=== PATIENT | female | born 1985 | race Caucasian/White ===

== ENCOUNTER 2018-12-24 07:52 | Inpatient (IN) ==
[2018-12-24] MEDS ORDERED: OXYTOCIN 30 UNITS/500 ML BAG IV PRN ×3 (08:41→20:12)
[2018-12-24] MEDS ORDERED: PENICILLIN G POTASSIUM 6 MU in DEXTROSE 5% 250 ML IV STA (08:46)
--- NOTE | 2018-12-24 08:48 | History & Physical Report ---
Date of Service December 24, 2018 Assessment & Plan (1) Post-dates : 33 yo at 41 wks, scheduled IOL VSS Afebrile FHR reassuring Early labor with irregular ctxs, favorable cervix GBS+ Plan to admit, monitor, PCN, Low dose pitocin to augment All questions were answered (2) GBS (group B Streptococcus carrier), +RV culture, currently : History of Present Illness Chief Complaint: Induction Primary Care Provider: NO PCP Patient is a 33 yo at 41 wks , scheduled IOL No complaints No ctxs/ LOF/VB +FM's Her has been uncomplicated except 1) GBS + 2) RH negative, received Rhogam 3) Prominent renal pelvises, stable Allergies Allergy/AdvReac Type Severity Reaction Status Date / Time No Known Drug Allergies Allergy Unknown Verified 12/24/18 08:09 Home Medications Home Medications Medication Instructions Recorded Confirmed Type PNV cmb#95-ferrous fumarate-FA 1 tab PO DAILY 12/24/18 12/24/18 History [] Patient History Medical History H/O wisdom tooth extraction as a teenager No known health problems Family History Grandmother (Paternal) Type II diabetes mellitus Social History Preferred Language: [place] 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 Beliefs That Will Affect Care: None marital status: Current Living Situation: Spouse Other Information That Helps Us Care for You: No Feels Safe at Home: Yes Safety Concerns: Feels Safe At This Time Smoking Status: Never smoker Do You Dip or Chew Tobacco: No ; Second Hand Exposure: No ; Hx Alcohol Use: No Hx 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
[2018-12-24] MEDS: LACTATED RINGER'S 1,000 ML IV PRN ×3 (09:17→16:08)
[2018-12-24 09:19] LABS: Hematocrit (blood only) 41.1 % (37-47); Hemoglobin 14.5 g/dL (12.0-16.0); Mean Corpuscular Hemoglobin 32.1 pg (25-34); Mean Corpuscular Volume 90.9 fL (80-100); Mean Platelet Volume 11.7 fL (7.4-10.4); Platelet Count 211 K/uL (130-400); RDW Coefficient of Variation 13.1 % (11.5-14.5); RDW Standard Deviation 43.2 fL (36.4-46.3); Red Blood Count 4.52 M/uL (4.2-5.4); White Blood Count 11.55 K/uL (4.8-10.8)
[2018-12-24 09:24] LABS: Mean Corpuscular Hgb Conc 35.3 g/dL (32-36)
[2018-12-24] MEDS ORDERED: BUTORPHANOL TARTRATE 1 MG/ML VIAL IV PRN (09:41)
[2018-12-24] MEDS: PENICILLIN G POTASSIUM 3 MU in DEXTROSE 5% 100 ML IV PRN ×2 (12:51→17:03)
[2018-12-24] MEDS ORDERED: ePHEDrine sulfate 50 MG/ML AMP ONE (13:04)
[2018-12-24] MEDS ORDERED: BUPIVACAINE 0.25% 30 ML VIAL ONE (13:04)
[2018-12-24] MEDS ORDERED: fentaNYL citrate 100 MCG/2 ML VIAL ONE (13:05)
[2018-12-24] MEDS ORDERED: fentaNYL 2MCG/ML ROPIV 1.25MG/ML 100 ML BAG EPI ONE (13:05)
--- NOTE | 2018-12-24 13:11 | Anesthesiology Consultation ---
Date of Service December 24, 2018 Assessment & Plan Chart Review Chart Review: Acceptable Risk for Surgery, Patient NOT seen in Pre Admission Testing and Acceptable Risk for Labor Epidural Consults Requested none ASA ASA2 Proposed Anesthesia Anesthesia Type: General and Labor Epidural Risk / Benefits Reviewed With: PT / POA / Parent / Guardian, Accepts Plan and Informed Consent Obtained History Height/Weight Height: 5 ft 5 in Weight: 90.718 kg Allergies Allergy/AdvReac Type Severity Reaction Status Date / Time No Known Drug Allergies Allergy Unknown Verified 12/24/18 08:09 Medications Home Medications Medication Instructions Recorded Confirmed Last Taken PNV cmb#95-ferrous fumarate-FA 1 tab PO DAILY 12/24/18 12/24/18 12/23/18 18:00 [] Active Medications Generic Name Dose Route Start Last Admin Trade Name Freq PRN Reason Stop Dose Admin Oxytocin 30 units in 500 mls @ 8 mls/hr 12/24/18 08:41 12/24/18 11:27 Pitocin IV 12/26/18 08:40 0.48 units/hr .Q24H PRN 8 mls/hr Labor Induction/Augmentation Titration Protocol 0.48 UNITS/HR Lactated Ringer's 1,000 mls @ 150 mls/hr 12/24/18 08:41 12/24/18 13:03 Lr IV 12/26/18 08:40 999 mls/hr .Q6H40M PRN Infusion L&D Protocol Protocol Penicillin G Potassium 3 mu/ 106 mls @ 100 mls/hr 12/24/18 08:41 12/24/18 12:51 Dextrose IV 01/03/19 08:40 100 mls/hr Q4H PRN Administration Give until delivery NPO Date Last Intake of Fluids: 12/24/18 Time Last Intake of Fluids: 12:30 Date Last Intake of Solids: 12/24/18 Time Last Intake of Solids: 07:00 Past Medical History Medical History GERD (gastroesophageal reflux disease) H/O wisdom tooth extraction as a teenager No known health problems Obese Exercise / Class Metabolic Activity II 4-5 Yardwork/Stairs/Walk up hill Past Family History Family History Grandmother (Paternal) Type II diabetes mellitus Past Anesthesia History No Hx of Anesthesia Complications and No Family Hx of Anesthesia Complications History of PONV No Hx of PONV and No Hx of Motion Sickness Social History Smoking Status: Never smoker Do You Dip or Chew Tobacco: No Hx Alcohol Use: No Hx Substance Use: No substance use type: does not use Physical Exam Vital Signs Last Vital Signs Temp 36.9 C 12/24/18 10:57 Pulse 85 12/24/18 12:41 Resp 18 12/24/18 10:57 BP 131/82 12/24/18 12:41 Constitutional + obese ENMT Mouth: + small oral opening; no dentition abnormality Thyromental Distance: < 3.5 Finger Breadths Mallampati Class: II Neck normal visual inspection and trachea midline; neck extension not limited Respiratory normal respiratory effort Auscultation: lungs clear to auscultation bilaterally Cardiovascular Rate/Rhythm: regular rate and regular rhythm Heart Sounds: no murmur Musculoskeletal Spine: lumbar spine normal to inspection; normal cervical ROM Neurologic moves all extremities Motor/Sensory: no sensory deficit Psychiatric Orientation: alert and oriented x 3 Testing Laboratory Results 12/24/18 08:54
[2018-12-24] MEDS ORDERED: PROMETHAZINE HCL 25 MG in SODIUM CHLORIDE 0.9% 50 ML IV PRN (13:36)
[2018-12-24] MEDS ORDERED: NALBUPHINE HCL INJ 10 MG/ML AMP IV PRN (13:36)
[2018-12-24] MEDS ORDERED: NALOXONE HCL 1 MG in SODIUM CHLORIDE 0.9% 1000ML 1,000 ML IV PRN (13:36)
[2018-12-24] MEDS ORDERED: ePHEDrine sulfate 50 MG/ML AMP IV PRN (13:36)
[2018-12-24] MEDS ORDERED: DiphenhydrAMINE HCL 50 MG/ML VIAL IV PRN (13:36)
[2018-12-24] MEDS ORDERED: NALOXONE HCL 0.4 MG/1 ML VIAL/CARP IV PRN (13:36)
[2018-12-24] MEDS ORDERED: fentaNYL 2MCG/ML ROPIV 1.25MG/ML 100 ML BAG EPI PRN (13:36)
[2018-12-24] MEDS ORDERED: ONDANSETRON INJ 2 MG/ML 2 ML VIAL IV PRN (13:36)
--- NOTE | 2018-12-24 13:49 | Obstetrical Progress Note ---
Date of Service December 24, 2018 Subjective Patient is reevaluated She received epidural for pain, comfortable now FHR with moderate variability VE; 5/ 60%/ -2, tight bulging bag, AROM, clear fluid [place] ctxs q2-4 min, pitocin is at 10 miu/min Continue to monitor Results & Data Vital Signs (Past 12 Hours) Vital Signs Temp Pulse Resp BP Pulse Ox 12/24/18 13:44 113 H 116/72 12/24/18 13:42 134 H 119/67 12/24/18 13:41 128 H 99 12/24/18 13:40 74 124/71 12/24/18 13:38 75 85/48 L 12/24/18 13:36 102 H 122/71 98 12/24/18 13:34 101 H 119/62 12/24/18 13:32 103 H 135/62 12/24/18 13:31 109 H 98 12/24/18 13:26 87 99 12/24/18 13:21 101 H 99 12/24/18 13:16 94 H 100 12/24/18 13:11 92 H 99 12/24/18 12:41 85 131/82 12/24/18 11:40 94 H 129/88 12/24/18 10:57 36.9 C 18 12/24/18 10:40 76 118/64 12/24/18 10:10 91 H 138/91 12/24/18 08:04 120 H 133/85 12/24/18 08:01 36.7 C 18
--- NOTE | 2018-12-24 15:48 | Obstetrical Progress Note ---
Date of Service December 24, 2018 Subjective Patient is reevaluated FHR was having mild early / late decels wth ctxs Her nurse was checking her cervix and called 8-9 cm/+1 station, FHR had accel and increased variability after VE Patient does not feel any pain nor pressure Continue to monitor Anticipate Results & Data Vital Signs (Past 12 Hours) Vital Signs Temp Pulse Resp BP Pulse Ox 12/24/18 15:46 92 H 100 12/24/18 15:42 78 119/81 12/24/18 15:41 85 99 12/24/18 15:36 69 99 12/24/18 15:31 69 98 12/24/18 15:30 18 12/24/18 15:28 85 120/76 12/24/18 15:26 75 100 12/24/18 15:21 72 100 12/24/18 15:16 72 98 12/24/18 15:13 77 125/69 12/24/18 15:11 82 99 12/24/18 15:06 92 H 99 12/24/18 15:01 83 99 12/24/18 15:00 36.8 C 18 12/24/18 14:56 70 98 12/24/18 14:55 73 118/69 12/24/18 14:51 79 99 12/24/18 14:49 73 115/68 12/24/18 14:46 75 97 12/24/18 14:44 87 117/76 12/24/18 14:41 76 99 12/24/18 14:40 74 117/73 12/24/18 14:36 90 98 12/24/18 14:34 79 114/71 12/24/18 14:31 88 95 12/24/18 14:30 73 18 117/69 12/24/18 14:26 80 98 12/24/18 14:24 74 113/72 12/24/18 14:23 86 94 12/24/18 14:21 73 98 12/24/18 14:19 76 114/70 12/24/18 14:16 77 99 12/24/18 14:15 88 118/74 12/24/18 14:11 84 99 12/24/18 14:10 89 113/75 12/24/18 14:06 94 H 98 12/24/18 14:04 83 119/76 12/24/18 14:02 98 H 121/72 12/24/18 14:01 95 H 98 12/24/18 14:00 36.7 C 86 18 125/73 12/24/18 13:58 90 127/80 12/24/18 13:56 104 H 124/77 98 12/24/18 13:54 96 H 117/77 12/24/18 13:52 106 H 119/79 12/24/18 13:51 114 H 100 12/24/18 13:50 110 H 121/80 12/24/18 13:48 96 H 118/79 12/24/18 13:46 121 H 115/83 100 12/24/18 13:44 113 H 116/72 12/24/18 13:42 134 H 119/67 12/24/18 13:41 128 H 99 12/24/18 13:40 74 124/71 12/24/18 13:38 75 85/48 L 12/24/18 13:36 102 H 122/71 98 12/24/18 13:34 101 H 119/62 12/24/18 13:32 103 H 135/62 12/24/18 13:31 109 H 98 12/24/18 13:26 87 99 12/24/18 13:21 101 H 99 12/24/18 13:16 94 H 100 12/24/18 13:11 92 H 99 12/24/18 12:41 85 131/82 12/24/18 11:40 94 H 129/88 12/24/18 10:57 36.9 C 18 12/24/18 10:40 76 118/64 12/24/18 10:10 91 H 138/91 12/24/18 08:04 120 H 133/85 12/24/18 08:01 36.7 C 18
--- NOTE | 2018-12-24 17:20 | Obstetrical Progress Note ---
Date of Service December 24, 2018 Subjective Patient is seen and examined She has been pushing for 1/2 hours VE; 10/ 100%/+2, anterior fontanelle at 5 o'clock position, OA FHR reassuring Continue to monitor and pushing Results & Data Vital Signs (Past 12 Hours) Vital Signs Temp Pulse Resp BP Pulse Ox 12/24/18 17:16 103 H 98 12/24/18 17:12 103 H 133/76 12/24/18 17:11 109 H 99 12/24/18 17:06 36.9 C 113 H 100 12/24/18 17:01 85 100 12/24/18 17:00 22 12/24/18 16:56 93 H 99 12/24/18 16:51 96 H 98 12/24/18 16:46 83 99 12/24/18 16:41 98 H 100 12/24/18 16:36 97 H 100 12/24/18 16:31 97 H 100 12/24/18 16:30 18 12/24/18 16:28 93 H 123/82 12/24/18 16:26 96 H 99 12/24/18 16:21 93 H 100 12/24/18 16:16 94 H 100 12/24/18 16:13 100 H 135/82 12/24/18 16:11 100 H 100 12/24/18 16:06 86 100 12/24/18 16:01 97 H 99 12/24/18 16:00 18 12/24/18 15:57 86 114/69 12/24/18 15:56 86 100 12/24/18 15:51 90 99 12/24/18 15:46 92 H 100 12/24/18 15:42 78 119/81 12/24/18 15:41 85 99 12/24/18 15:36 69 99 12/24/18 15:31 69 98 12/24/18 15:30 18 12/24/18 15:28 85 120/76 12/24/18 15:26 75 100 12/24/18 15:21 72 100 12/24/18 15:16 72 98 12/24/18 15:13 77 125/69 12/24/18 15:11 82 99 12/24/18 15:06 92 H 99 12/24/18 15:01 83 99 12/24/18 15:00 36.8 C 18 09/06/19 14:56 70 98 12/24/18 14:55 73 118/69 12/24/18 14:51 79 99 12/24/18 14:49 73 115/68 12/24/18 14:46 75 97 12/24/18 14:44 87 117/76 12/24/18 14:41 76 99 12/24/18 14:40 74 117/73 12/24/18 14:36 90 98 12/24/18 14:34 79 114/71 12/24/18 14:31 88 95 12/24/18 14:30 73 18 117/69 12/24/18 14:26 80 98 12/24/18 14:24 74 113/72 12/24/18 14:23 86 94 12/24/18 14:21 73 98 12/24/18 14:19 76 114/70 12/24/18 14:16 77 99 12/24/18 14:15 88 118/74 12/24/18 14:11 84 99 12/24/18 14:10 89 113/75 12/24/18 14:06 94 H 98 12/24/18 14:04 83 119/76 12/24/18 14:02 98 H 121/72 12/24/18 14:01 95 H 98 12/24/18 14:00 36.7 C 86 18 125/73 12/24/18 13:58 90 127/80 12/24/18 13:56 104 H 124/77 98 12/24/18 13:54 96 H 117/77 12/24/18 13:52 106 H 119/79 12/24/18 13:51 114 H 100 12/24/18 13:50 110 H 121/80 12/24/18 13:48 96 H 118/79 12/24/18 13:46 121 H 115/83 100 12/24/18 13:44 113 H 116/72 12/24/18 13:42 134 H 119/67 12/24/18 13:41 128 H 99 12/24/18 13:40 74 124/71 12/24/18 13:38 75 85/48 L 12/24/18 13:36 102 H 122/71 98 12/24/18 13:34 101 H 119/62 12/24/18 13:32 103 H 135/62 12/24/18 13:31 109 H 98 12/24/18 13:26 87 99 12/24/18 13:21 101 H 99 12/24/18 13:16 94 H 100 12/24/18 13:11 92 H 99 12/24/18 12:41 85 131/82 12/24/18 11:40 94 H 129/88 12/24/18 10:57 36.9 C 18 12/24/18 10:40 76 118/64 12/24/18 10:10 91 H 138/91 12/24/18 08:04 120 H 133/85 12/24/18 08:01 36.7 C 18
[2018-12-24] MEDS ORDERED: CEFAZOLIN 250 MG/ML 1 GM VIAL IV STA (18:35)
[2018-12-24] MEDS ORDERED: CEFAZOLIN 2000MG 2,000 MG/15 ML SYR IV STA (18:45)
--- NOTE | 2018-12-24 19:00 | Obstetrical Progress Note ---
Date of Service December 24, 2018 Subjective Patient had temp of 38.3 FHR was tachycardic at 170's Head was at +3 station Ordered Cefazolin Now head is on perineum FHR 150-160's with good variability Continue to monitor Anticipate Results & Data Vital Signs (Past 12 Hours) Vital Signs Temp Pulse Resp BP Pulse Ox 12/24/18 18:56 157 H 99 12/24/18 18:51 117 H 98 12/24/18 18:46 134 H 98 12/24/18 18:41 106 H 99 12/24/18 18:36 100 H 97 12/24/18 18:31 139 H 98 12/24/18 18:30 38.3 C H 18 12/24/18 18:29 83 138/77 12/24/18 18:26 118 H 98 12/24/18 18:22 96 H 87 L 12/24/18 18:21 96 H 94 12/24/18 18:17 96 H 87 L 12/24/18 18:16 95 H 90 12/24/18 18:13 95 H 135/72 12/24/18 18:11 106 H 99 12/24/18 18:10 94 H 85 L 12/24/18 18:06 97 H 98 12/24/18 18:04 115 H 87 L 12/24/18 18:01 109 H 99 12/24/18 18:00 18 12/24/18 17:58 100 H 140/69 12/24/18 17:56 106 H 99 12/24/18 17:51 117 H 96 12/24/18 17:49 94 H 86 L 12/24/18 17:46 96 H 94 12/24/18 17:44 92 H 87 L 12/24/18 17:43 89 133/63 12/24/18 17:41 92 H 99 12/24/18 17:38 91 H 79 L 12/24/18 17:36 97 H 96 12/24/18 17:33 92 H 89 L 12/24/18 17:31 91 H 99 12/24/18 17:28 96 H 135/90 12/24/18 17:26 90 98 12/24/18 17:21 97 H 99 12/24/18 17:16 103 H 98 12/24/18 17:12 103 H 133/76 12/24/18 17:11 109 H 99 12/24/18 17:06 36.9 C 113 H 100 12/24/18 17:01 85 100 12/24/18 17:00 22 12/24/18 16:56 93 H 99 12/24/18 16:51 96 H 98 12/24/18 16:46 83 99 12/24/18 16:41 98 H 100 12/24/18 16:36 97 H 100 12/24/18 16:31 97 H 100 12/24/18 16:30 18 12/24/18 16:28 93 H 123/82 12/24/18 16:26 96 H 99 12/24/18 16:21 93 H 100 12/24/18 16:16 94 H 100 12/24/18 16:13 100 H 135/82 12/24/18 16:11 100 H 100 12/24/18 16:06 86 100 12/24/18 16:01 97 H 99 12/24/18 16:00 18 12/24/18 15:57 86 114/69 12/24/18 15:56 86 100 12/24/18 15:51 90 99 12/24/18 15:46 92 H 100 12/24/18 15:42 78 119/81 12/24/18 15:41 85 99 12/24/18 15:36 69 99 12/24/18 15:31 69 98 12/24/18 15:30 18 12/24/18 15:28 85 120/76 12/24/18 15:26 75 100 12/24/18 15:21 72 100 12/24/18 15:16 72 98 12/24/18 15:13 77 125/69 12/24/18 15:11 82 99 12/24/18 15:06 92 H 99 12/24/18 15:01 83 99 12/24/18 15:00 36.8 C 18 12/24/18 14:56 70 98 12/24/18 14:55 73 118/69 12/24/18 14:51 79 99 12/24/18 14:49 73 115/68 12/24/18 14:46 75 97 12/24/18 14:44 87 117/76 12/24/18 14:41 76 99 12/24/18 14:40 74 117/73 12/24/18 14:36 90 98 12/24/18 14:34 79 114/71 12/24/18 14:31 88 95 12/24/18 14:30 73 18 117/69 12/24/18 14:26 80 98 12/24/18 14:24 74 113/72 12/24/18 14:23 86 94 12/24/18 14:21 73 98 12/24/18 14:19 76 114/70 12/24/18 14:16 77 99 12/24/18 14:15 88 118/74 12/24/18 14:11 84 99 12/24/18 14:10 89 113/75 12/24/18 14:06 94 H 98 12/24/18 14:04 83 119/76 12/24/18 14:02 98 H 121/72 12/24/18 14:01 95 H 98 12/24/18 14:00 36.7 C 86 18 125/73 12/24/18 13:58 90 127/80 12/24/18 13:56 104 H 124/77 98 12/24/18 13:54 96 H 117/77 12/24/18 13:52 106 H 119/79 12/24/18 13:51 114 H 100 12/24/18 13:50 110 H 121/80 12/24/18 13:48 96 H 118/79 12/24/18 13:46 121 H 115/83 100 12/24/18 13:44 113 H 116/72 12/24/18 13:42 134 H 119/67 12/24/18 13:41 128 H 99 12/24/18 13:40 74 124/71 12/24/18 13:38 75 85/48 L 12/24/18 13:36 102 H 122/71 98 12/24/18 13:34 101 H 119/62 12/24/18 13:32 103 H 135/62 12/24/18 13:31 109 H 98 12/24/18 13:26 87 99 12/24/18 13:21 101 H 99 12/24/18 13:16 94 H 100 12/24/18 13:11 92 H 99 12/24/18 12:41 85 131/82 12/24/18 11:40 94 H 129/88 12/24/18 10:57 36.9 C 18 12/24/18 10:40 76 118/64 12/24/18 10:10 91 H 138/91 12/24/18 08:04 120 H 133/85 12/24/18 08:01 36.7 C 18
[2018-12-24] MEDS ORDERED: SUPERCREAM 0.870% 15 GM JAR EXT PRN (20:12)
[2018-12-24] MEDS ORDERED: OXYCODONE/ACETAMINOPHEN 5mg/325mg TAB PO PRN (20:12)
[2018-12-24] MEDS ORDERED: HYDROCORTISONE ACETATE 25 MG SUPP PR PRN (20:12)
[2018-12-24] MEDS ORDERED: MEASLES, MUMPS & RUBELLA VIRUS VIAL SQ ONE (20:12)
[2018-12-24] MEDS ORDERED: ACETAMINOPHEN 325 MG TAB PO PRN (20:12)
[2018-12-24] MEDS ORDERED: BENZOCAINE 20% AER SPR 82.5 GM CAN EXT PRN (20:12)
[2018-12-24] MEDS ORDERED: DIPHTHERIA/TETANUS/PERTUSSIS 0.5 ML SYR/VIAL IM ONE (20:12)
[2018-12-24] MEDS ORDERED: LACTATED RINGER'S 1,000 ML IV SCH (20:15)
[2018-12-24] MEDS: DOCUSATE SODIUM 100 MG CAP PO SCH (21:22)
[2018-12-24] MEDS: IBUPROFEN 600 MG TAB PO PRN (22:04)
--- NOTE | 2018-12-24 22:58 | Anesthesia Procedure Note ---
Date of Service December 24, 2018 Anesthesia Post Epidural Note Vital Signs Vital Signs: Temp Pulse Resp BP Pulse Ox 36.8 C 129 H 20 110/64 99 12/24/18 22:00 12/24/18 22:00 12/24/18 22:00 12/24/18 22:00 12/24/18 19:41 Notes Mental Status: alert / awake / arousable Nausea / Vomiting: adequately controlled Pain: adequately controlled Airway Patency, RR, SpO2: stable & adequate BP & HR: stable & adequate Hydration State: stable & adequate Neuraxial Anesthesia: was administered and sensory block is resolving Anesthetic Complications: no major complications apparent Epidural: Removed without complications and With tip intact
[2018-12-25] MEDS ORDERED: CEFAZOLIN 2000MG 2,000 MG/15 ML SYR IV SCH (02:00)
[2018-12-25] MEDS: IBUPROFEN 600 MG TAB PO PRN ×4 (02:02→21:10)
--- NOTE | 2018-12-25 05:48 | Delivery Summary ---
DATE OF OPERATION: 12/24/2018 TIME OF DELIVERY OF BABY: 19:29 p.m. TIME OF DELIVERY OF PLACENTA: 19:34 p.m. DETAILS OF DELIVERY: The patient was found to be fully dilated and desired to push. She pushed for about 2 hours and 50 minutes and delivered the head without difficulty. Shoulders were delivered with minimal traction. Baby was handed off to the mother where mouth and nose were suctioned and terminal meconium was noted. The baby was vigorously crying and moving. Cord was clamped at 1 minute delay and cut. It was 3 vessels cord. Cord blood was collected per patient request for donation and then vagina and perineum were checked for lacerations. There was a third-degree perineal laceration, which was confirmed with rectal exam and the sphincter muscles were found and held with Allis clamps and brought to the midline. Gloves were changed. At that point, placenta was found to be in the vagina, delivered spontaneously as intact and complete. Uterus was explored, found to be empty. Lower segment was cleared of all clots and debris. Fundus was firm. Attention was turned to the repair. These sphincter muscles were repaired with U-suture with 2-0 Vicryl first by end-to-end fashion and then multiple [id number] sutures were placed at the perineal body muscles around the sphincter muscle to support the sphincter. Rectal exam was repeated. Excellent sphincter tone and integrity was noted. No sutures were felt in the rectum. Gloves were changed. Bulbocavernous muscles were reapproximated and supported the sphincter and perineal area. The vaginal mucosa was repaired with 2-0 Vicryl in a running locked fashion and there was another vaginal extension on the left side which was smaller. It was also repaired with 2-0 Vicryl in a running fashion, and in the midline, the bulbocavernous muscles, perineal body muscles were also repaired. Skin was closed in a subcuticular fashion. Excellent hemostasis was achieved. There was a small first-degree laceration on the anterior lower vaginal wall, which was repaired with 3-0 Vicryl on SH needle with [id number] stitch x2. Excellent hemostasis was achieved. Rest of the vagina and perineum were intact. Fundus was firm. EBL was 200 ml. Mom and baby tolerated the procedure well. Sponge, lap, needle count was correct x2. Baby was a viable male infant, Apgars 8/9. No complications happened. I was present during whole procedure and mom received 2 grams of cefazolin during repair. She had a temperature of 38.3 during labor. She will be treated for 24 hours empirically for possible intra-amniotic infection and peds are notified. I attest to the content of the Intraoperative Record and any orders documented therein. Any exceptions are noted below. KANE
[2018-12-25 06:53] LABS: Hematocrit (blood only) 32.5 % (37-47); Hemoglobin 11.2 g/dL (12.0-16.0); Mean Corpuscular Hemoglobin 31.5 pg (25-34); Mean Corpuscular Hgb Conc 34.5 g/dL (32-36); Mean Corpuscular Volume 91.3 fL (80-100); Mean Platelet Volume 11.2 fL (7.4-10.4); Platelet Count 181 K/uL (130-400); RDW Standard Deviation 42.9 fL (36.4-46.3); Red Blood Count 3.56 M/uL (4.2-5.4); White Blood Count 15.69 K/uL (4.8-10.8)
[2018-12-25] MEDS: PRENATAL VITAMIN 1 TAB PO SCH (07:46)
[2018-12-25] MEDS: DOCUSATE SODIUM 100 MG CAP PO SCH ×2 (07:46→21:10)
[2018-12-25] MEDS: FERROUS SULFATE 325 MG TAB PO SCH (07:46)
--- NOTE | 2018-12-25 09:52 | Obstetrical Progress Note ---
Date of Service December 25, 2018 Assessment & Plan (1) normal course: Day #1 doing well continue care anticipate disch tomorrow Subjective Ambulation: ambulating normally Voiding: no voiding problems Passing Gas:: Yes Diet Tolerance:: regular diet Lochia:: Small Feeding Type:: breast feeding Review of Systems All systems reviewed & are unremarkable except as noted in HPI & below Physical Exam Constitutional WD/WN, vitals as above well developed and well nourished Eyes PERRL, conjunctivae normal, anicteric sclerae Neck trachea midline, no thyromegaly Respiratory normal respiratory effort, lungs clear to auscultation Auscultation: no crackles, no rales and no wheezes Cardiovascular RRR, no murmur, no edema Gastrointestinal (Abdomen) normal bowel sounds, soft, nontender, no hepatosplenomegaly Uterus is below umbilicus Musculoskeletal no cyanosis or clubbing, extremities motor strength 5/5 Skin no rashes, warm and dry Neurologic patellar DTR's 2+ bilat, sensation intact Psychiatric A+Ox3, euthymic affect Genitourinary normal external appearance Results & Data Vital Signs (Past 12 Hours) Vital Signs Temp Pulse Pulse Resp BP BP Pulse Ox 12/25/18 09:46 36.7 C 98 H 18 107/71 98 12/25/18 09:31 36.7 C 92 H 18 101/63 98 12/25/18 04:20 36.4 C L 85 16 116/77 98 12/24/18 22:50 36.9 C 96 H 20 108/69 100 12/24/18 22:00 36.8 C 129 H 20 110/64 12/24/18 21:57 129 H 110/64
[2018-12-25] MEDS ORDERED: BISACODYL 5 MG TABEC PO SCH (20:00)
[2018-12-26 06:27] LABS: Hematocrit (blood only) 32.4 % (37-47)
[2018-12-26] MEDS: IBUPROFEN 600 MG TAB PO PRN (06:34)
[2018-12-26] MEDS: PRENATAL VITAMIN 1 TAB PO SCH (08:56)
[2018-12-26] MEDS: DOCUSATE SODIUM 100 MG CAP PO SCH (08:56)
[2018-12-26] MEDS: FERROUS SULFATE 325 MG TAB PO SCH (08:56)
[2018-12-26] MEDS ORDERED: BISACODYL 10 MG SUPP PR PRN (09:00)
--- NOTE | 2018-12-26 10:31 | Obstetrical Progress Note ---
Date of Service December 26, 2018 Assessment & Plan (1) normal course: PPd #2 pt doing well dich home with instructions Subjective Ambulation: ambulating normally Voiding: no voiding problems Passing Gas:: Yes Diet Tolerance:: regular diet Lochia:: Small Feeding Type:: breast feeding Review of Systems All systems reviewed & are unremarkable except as noted in HPI & below Physical Exam Constitutional WD/WN, vitals as above well developed and well nourished Eyes PERRL, conjunctivae normal, anicteric sclerae Neck trachea midline, no thyromegaly Respiratory normal respiratory effort, lungs clear to auscultation Auscultation: no crackles, no rales and no wheezes Cardiovascular RRR, no murmur, no edema Gastrointestinal (Abdomen) normal bowel sounds, soft, nontender, no hepatosplenomegaly Uterus is below umbilicus Musculoskeletal no cyanosis or clubbing, extremities motor strength 5/5 Skin no rashes, warm and dry Neurologic patellar DTR's 2+ bilat, sensation intact Psychiatric A+Ox3, euthymic affect Genitourinary normal external appearance Results & Data Vital Signs (Past 12 Hours) Vital Signs Temp Pulse Resp BP Pulse Ox 12/26/18 00:20 36.7 C 78 16 118/79 97
== END 2018-12-26 18:35 | disposition home or self-care (01) | DRG 806 ==
LOC: 4S1 07:52 → 4S2 22:39

== ENCOUNTER 2023-02-23 08:12 | Inpatient (IN) ==
[2023-02-23] MEDS ORDERED: LIDOCAINE 1% LOCAL 20 ML VIAL INFIL PRN (15:05)
[2023-02-23] MEDS ORDERED: OXYTOCIN 30 UNITS/500 ML BAG IV PRN ×2 (15:05→18:46)
--- NOTE | 2023-02-23 15:20 | History & Physical Report ---
Date of Service February 23, 2023 Assessment & Plan (1) 39 weeks gestation of : Plan: Admit, routine labs Misoprostol 25 mcg sublingual every 4 hours for softening of cervix Plan for AROM and oxytocin after Epidural if patient request Anticipate spontaneous vaginal delivery (2) History of third degree perineal laceration: (3) Rh negative status during in third trimester, antepartum: Admission and Anticipated Discharge Date Admission Date: February 23, 2023 History of Present Illness Chief Complaint: IOL Primary Care Provider: NO PCP Patient is a pleasant 37-year-old -0-0-1 at 39 weeks 7 days who presents for elective induction at 39 weeks. Patient denies any regular contractions, leaking of fluid or vaginal bleeding. Notes good movement. Denies headache, blurry vision, right upper quadrant or epigastric pain. has been complicated by AMA, Rh-, history of 1/3 degree perineal laceration at the time of her last delivery Patient has no other complaints at this time GBS negative (was GBS positive last ) Allergies Allergy/AdvReac Type Severity Reaction Status Date / Time No Known Drug Allergies Allergy Unknown Verified 08/12/22 13:51 Home Medications Medication Instructions Recorded Confirmed Type vit no.95-ferrous 1 tab PO DAILY 12/24/18 02/23/23 History fumarate 28 mg-folic acid 800 mcg tablet () ascorbic acid (vitamin C) 1,000 mg 1 g PO Q6H 08/12/22 02/23/23 History tablet omeprazole 20 mg capsule,delayed 20 mg PO DAILY 02/23/23 02/23/23 History release Patient History Medical History normal course GBS (group B Streptococcus carrier), +RV culture, currently Post-dates GERD (gastroesophageal reflux disease) Obese No known health problems Surgical History H/O wisdom tooth extraction as a teenager (estimates around 2003) Family History (Updated 08/12/22 @ 13:54 by Rich Paul) Grandmother (Paternal) Type II diabetes mellitus Other No family history of adverse response to anesthesia No family history of bleeding disorder Social History (Updated 08/12/22 @ 13:58 by Rich A Wahlers) Smoking Status: Former smoker Tobacco Type: Cigarettes Cigarettes Per Day: mainly socially in college and 20's; Second Hand Exposure: No; Do You Dip or Chew Tobacco: No; Hx Alcohol Use: No Hx Substance Use: No Preferred Language: Greek Communication Ability: Effective Office Messenger Required: No Beliefs That Will Affect Care: None marital status: Current Living Situation: Family Current Living Situation Comment: Lives with and 4 year old son, and 4 cats. 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 Review of Systems All systems reviewed & are unremarkable except as noted in HPI & below Physical Exam Constitutional: WD/WN, vitals as above Respiratory: normal respiratory effort, lungs clear to auscultation Cardiovascular: RRR, no murmur, no edema Gastrointestinal (Abdomen): normal bowel sounds, soft, nontender, no hepatosplenomegaly gravid EFW 3400g Genitourinary: Cervix: 2-3/50/-2, membrane sweep performed Cephalic Results & Data Vital Signs (Past 12 Hours) Vital Signs Temp Pulse Resp BP 02/23/23 14:56 36.6 C 100 H 18 129/89 02/23/23 14:31 36.6 C 100 H 18 129/89 Monitoring External Monitor heart tracing: Baseline 140, moderate variability, positive accelerations, no decelerations, category 1 tracing Tocodynamometer Irregular contractions
[2023-02-23 15:58] LABS: Albumin Globulin Ratio 1.2 (0.9-2); Albumin Level 3.4 gm/dl (3.4-5.0); BUN Creatinine Ratio 17.1 (10-20); Bilirubin,Total 0.5 mg/dl (0.2-1.0); Calcium 8.8 mg/dl (8.6-10.3); Creatinine Clr Calc Pharmacy 107.8 ml/min; Est GFR (Non-African American) 91.4 ml/min; Globulin 2.9 gm/dl (2.5-4.0); Hematocrit (blood only) 39.5 % (37.0-47.0); Hemoglobin 13.6 g/dl (12.0-16.0); Mean Corpuscular Hemoglobin 31.6 pg (25.0-34.0); Mean Corpuscular Hgb Conc 34.4 g/dL (32.0-36.0); Mean Corpuscular Volume 91.9 fL (80.0-100.0); Mean Platelet Volume 11.4 fL (9.4-12.4); Platelet Count 209 K/uL (130-400); Potassium 4.2 mmol/L (3.5-5.1); RDW Coefficient of Variation 13.4 % (11.5-14.5); RDW Standard Deviation 45.2 fL (36.4-46.3); Total Protein 6.3 gm/dl (6.0-8.3)
[2023-02-23] MEDS: miSOPROStoL 25 MCG TAB SL SCH (16:05)
--- NOTE | 2023-02-23 18:48 | Obstetrical Progress Note ---
Date of Service February 23, 2023 Assessment & Plan (1) 39 weeks gestation of : Plan: Misoprostol 25 mcg x1 dose Start oxytocin for augmentation Epidural if patient request Anticipate spontaneous vaginal delivery (2) History of third degree perineal laceration: (3) Rh negative status during in third trimester, antepartum: Admission and Anticipated Discharge Date Admission Date: February 23, 2023 Subjective Increasing ctx Physical Exam Genitourinary: FHT: baseline 170, mod variability, no acels, variable decels, cat II [place]: irregular ctx Cx: 4/50/-2 AROM, scant blood tinged fluid, no cord, no complications Results & Data Vital Signs (Past 12 Hours) Vital Signs Temp Pulse Resp BP 02/23/23 18:24 81 02/23/23 18:24 118/75 02/23/23 14:56 36.6 C 100 H 18 129/89 02/23/23 14:31 36.6 C 100 H 18 129/89
[2023-02-23] MEDS: LACTATED RINGER'S 1,000 ML IV PRN ×2 (19:04→22:42)
[2023-02-23] MEDS ORDERED: SODIUM CHLORIDE 0.9% PF INJ 10 ML VIAL ONE (19:31)
[2023-02-23] MEDS ORDERED: fentaNYL citrate PF 100 MCG/2 ML VIAL ONE (19:31)
[2023-02-23] MEDS ORDERED: fentANYL 2 MCG/ML BUPIVacaine 0.125%-NSS 100ML BAG ONE (19:31)
[2023-02-23] MEDS ORDERED: ePHEDrine sulfate 50 MG/ML AMP ONE (19:31)
[2023-02-23] MEDS ORDERED: BUPIVACAINE 0.25% PF 30 ML VIAL ONE (19:31)
[2023-02-23] MEDS ORDERED: LIDOCAINE 2%/EPINEPHRINE 1:200,000 20 ML PF ONE (19:32)
[2023-02-23] MEDS ORDERED: NALOXONE HCL 0.4 MG/1 ML VIAL/CARP IV PRN (19:44)
[2023-02-23] MEDS ORDERED: SODIUM CHLORIDE 0.9% PF INJ 10 ML VIAL EPI PRN (19:44)
[2023-02-23] MEDS ORDERED: ROPIVACAINE 0.5% PF 5 MG/ML 20 ML VIAL EPI PRN (19:44)
[2023-02-23] MEDS ORDERED: SODIUM CHLORIDE 0.9% PF INJ 10 ML VIAL EPI STA (19:44)
[2023-02-23] MEDS ORDERED: LIDOCAINE 2%/EPINEPHRINE 1:200,000 20 ML PF EPI STA (19:44)
[2023-02-23] MEDS ORDERED: fentANYL 2 MCG/ML BUPIVacaine 0.125%-NSS 100ML BAG EPI PRN (19:44)
[2023-02-23] MEDS ORDERED: NALBUPHINE HCL 5 MG in SYRINGE 0 ML IV PRN (19:44)
[2023-02-23] MEDS ORDERED: fentaNYL citrate PF 100 MCG/2 ML VIAL EPI PRN (19:44)
[2023-02-23] MEDS ORDERED: BUPIVACAINE 0.25% PF 30 ML VIAL EPI PRN (19:44)
[2023-02-23] MEDS ORDERED: ONDANSETRON INJ 2 MG/ML 2 ML VIAL IV PRN (19:44)
[2023-02-23] MEDS ORDERED: diphenhydrAMINE 50 MG/ML VIAL IV PRN (19:44)
[2023-02-23] MEDS ORDERED: ePHEDrine sulfate 50 MG/ML AMP IV PRN (19:44)
[2023-02-23] MEDS ORDERED: fentaNYL citrate PF 100 MCG/2 ML VIAL EPI STA (19:44)
[2023-02-23] MEDS ORDERED: NALOXONE HCL 1 MG in SODIUM CHLORIDE 0.9% 1,000 ML IV PRN (19:44)
[2023-02-23] MEDS ORDERED: BUPIVACAINE 0.25% PF 30 ML VIAL EPI STA (19:44)
[2023-02-23] MEDS ORDERED: LIDOCAINE 2% MPF LOCAL 5 ML VIAL EPI PRN (19:44)
--- NOTE | 2023-02-23 19:45 | Anesthesiology Consultation ---
Date of Service February 23, 2023 Assessment & Plan (1) Encounter for pre-operative examination: Chart Review Chart Review: Patient NOT seen in Pre Admission Testing and Acceptable Risk for Labor Epidural Consults Requested none History Height/Weight Height: 5 ft 5 in Weight: 96.162 kg Allergies Allergy/AdvReac Type Severity Reaction Status Date / Time No Known Drug Allergies Allergy Unknown Verified 08/12/22 13:51 Medications Home Medications Medication Instructions Recorded Confirmed Last Taken vit no.95-ferrous 1 tab PO DAILY 12/24/18 02/23/23 02/22/23 fumarate 28 mg-folic acid 800 mcg tablet () ascorbic acid (vitamin C) 1,000 mg 1 g PO Q6H 08/12/22 02/23/23 02/22/23 tablet omeprazole 20 mg capsule,delayed 20 mg PO DAILY 02/23/23 02/23/23 02/22/23 release Active Medications Generic Name Dose Route Start Last Admin Trade Name Freq PRN Reason Stop Dose Admin Lactated Ringer's 1,000 mls @ 125 mls/hr 02/23/23 15:05 02/23/23 19:35 Lr IV 02/25/23 15:04 999 mls/hr .Q8H PRN Infusion L&D Protocol Protocol Oxytocin 30 units in 500 mls @ 2 mls/hr 02/23/23 18:46 02/23/23 19:25 Pitocin IV 02/25/23 18:45 0.12 units/hr .Q24H PRN 2 mls/hr Labor Induction/Augmentation Administration Protocol 0.12 UNITS/HR Misoprostol 25 mcg 02/23/23 15:30 02/23/23 16:05 Misoprostol 25 Mcg Tab SL 03/25/23 15:29 25 mcg Q4H VIKTORIA Administration Past Medical History Medical History (Updated 02/23/23 @ 19:45 by Ifeanyi Zimmer MD) Encounter for pre-operative examination normal course GBS (group B Streptococcus carrier), +RV culture, currently Post-dates GERD (gastroesophageal reflux disease) Obese No known health problems Exercise / Class Metabolic Activity II 4-5 Yardwork/Stairs/Walk up hill Past Family History Family History Grandmother (Paternal) Type II diabetes mellitus Other No family history of adverse response to anesthesia No family history of bleeding disorder Past Surgical History Surgical History H/O wisdom tooth extraction as a teenager (estimates around 2003) Past Anesthesia History No Hx of Anesthesia Complications and No Family Hx of Anesthesia Complications Social History Smoking Status: Former smoker Smoking cigarettes per day: mainly socially in college and 20's Do You Dip or Chew Tobacco: No Hx Alcohol Use: No Hx Substance Use: No substance use type: does not use Physical Exam Vital Signs Last Vital Signs Temp 36.9 C 02/23/23 19:01 Pulse 88 02/23/23 20:03 Resp 18 02/23/23 19:01 BP 126/77 02/23/23 20:03 Pulse Ox 98 02/23/23 19:58 Testing Laboratory Results 02/23/23 15:28 02/23/23 15:28 Blood Type O Negative 02/23/23 15:28 Antibody Screen NEGATIVE 02/23/23 15:28
[2023-02-24] MEDS ORDERED: BENZOCAINE 20% SPRY 85 APPLN/85 GM CAN EXT PRN (02:43)
[2023-02-24] MEDS ORDERED: HYDROCORTISONE ACETATE 25 MG SUPP PR PRN (02:43)
[2023-02-24] MEDS ORDERED: bisacodyL 10 MG SUPP PR PRN (02:43)
[2023-02-24] MEDS ORDERED: OXYTOCIN 30 UNITS/500 ML BAG IV PRN (02:43)
[2023-02-24] MEDS ORDERED: DIPHTHERIA/TETANUS/PERTUSSIS Vaccine (Tdap, Age 7+yrs) 0.5mL SYR/VL IM ONE (02:43)
[2023-02-24] MEDS ORDERED: ACETAMINOPHEN 325 MG TAB PO PRN (02:43)
--- NOTE | 2023-02-24 02:46 | Delivery Summary ---
Vaginal Delivery Summary Date of Service February 24, 2023 Vaginal Delivery Summary Delivery Note History synopsis: Patient is a 37-year-old -0-0-1 admitted at 39 weeks and 6 days for induction of labor. Upon presentation she was 2 to 3 cm, received 1 dose of misoprostol sublingual 25 mcg. Progressed to 4 cm and AROM was performed. She was started on oxytocin for augmentation. She then progressed to complete following a normal labor curve. She was allowed to labor down due to her history of her previous third-degree laceration. I was then called for delivery Delivery Summary: Patient was placed in the dorsal lithotomy position. She was prepped and draped in the usual sterile fashion. Upon maternal pushing the head was delivered atraumatically followed by the anterior shoulders, posterior shoulders then the remainder of the infants body. The was immediately placed on mother's abdomen, dried and stimulated. Delayed cord clamping for 60 seconds was performed. The infants mouth and nose were bulb suctioned by nursing staff. A female infant was delivered at 0227, weight pending, with APGARS of 8 at 1 minute and 9 at 5 minutes. The infant was handed off to the awaiting nursing staff. Cord blood gases were not obtained. The placenta delivered intact with three vessel cord at 0230. Placenta was sent to pathology. Thirty units of Pitocin were added to the IV fluid and allowed to run freely. Uterine massage was performed until uterus was deemed firm. Upon inspection of the perineum, vagina and cervix were intact. Second degree laceration was noted which was repaired with 3-0 vicryl in the usual fashion. Upon re-inspection the patient was hemo static. Uterus again massaged and found to be firm. Needle and sponge counts were correct. Patient was stable and allowed to recover in L&D room. was stable and remained in room with mother in the labor and delivery unit. EBL 300 mls
--- NOTE | 2023-02-24 04:42 | Anesthesia Procedure Note ---
Date of Service February 24, 2023 Anesthesia Post Epidural Note Vital Signs Vital Signs: Temp Pulse Resp BP Pulse Ox 36.9 C 97 H 18 133/67 99 02/24/23 02:36 02/24/23 04:36 02/24/23 04:06 02/24/23 04:36 02/24/23 03:18 Pain Intensity Abdomen: Pain Intensity: 3 Notes Mental Status: alert / awake / arousable and participated in evaluation Patient Amnestic to Procedure: No Nausea / Vomiting: adequately controlled Pain: adequately controlled Airway Patency, RR, SpO2: stable & adequate BP & HR: stable & adequate Hydration State: stable & adequate Neuraxial Anesthesia: was administered and sensory block is resolving Anesthetic Complications: no major complications apparent and Pt Satisfied with anesthetic care Epidural: Removed without complications and With tip intact
[2023-02-24] MEDS: miSOPROStoL 25 MCG TAB SL SCH (06:01)
[2023-02-24] MEDS: PRENATAL VITAMIN 1 TAB PO SCH (08:30)
[2023-02-24] MEDS: DOCUSATE SODIUM 100 MG CAP PO SCH ×2 (08:30→20:09)
[2023-02-24] MEDS: PANTOprazole 40 MG TAB PO SCH (08:30)
[2023-02-24] MEDS: IBUPROFEN 600 MG TAB PO PRN ×2 (15:13→20:09)
[2023-02-25 06:12] LABS: Hematocrit (blood only) 37.5 % (37.0-47.0); Hemoglobin 12.9 g/dl (12.0-16.0); Mean Corpuscular Hemoglobin 31.6 pg (25.0-34.0); Mean Corpuscular Hgb Conc 34.4 g/dL (32.0-36.0); Mean Corpuscular Volume 91.9 fL (80.0-100.0); Mean Platelet Volume 11.2 fL (9.4-12.4); Platelet Count 170 K/uL (130-400); RDW Coefficient of Variation 13.3 % (11.5-14.5); Red Blood Count 4.08 M/uL (4.20-5.40); White Blood Count 16.56 K/ul (4.8-10.8)
[2023-02-25] MEDS: IBUPROFEN 600 MG TAB PO PRN (06:23)
[2023-02-25] MEDS: DOCUSATE SODIUM 100 MG CAP PO SCH (09:04)
[2023-02-25] MEDS: PRENATAL VITAMIN 1 TAB PO SCH (09:04)
[2023-02-25] MEDS: PANTOprazole 40 MG TAB PO SCH (09:04)
--- NOTE | 2023-02-25 11:32 | Obstetrical Progress Note ---
Date of Service February 25, 2023 Subjective Ambulation: ambulating normally Voiding: no voiding problems Passing Gas:: Yes Diet Tolerance:: regular diet Lochia:: Small Feeding Type:: breast feeding doing well. plans for d/c Physical Exam Constitutional WD/WN, vitals as above Gastrointestinal (Abdomen) Inspection/Auscultation: abdomen normal to inspection abdomen soft and non-tender. fundus firm below U Musculoskeletal Extremities: extremities normal to inspection Skin no rashes, warm and dry Neurologic patellar DTR's 2+ bilat, sensation intact Psychiatric A+Ox3, euthymic affect Results & Data Vital Signs (Past 12 Hours) Vital Signs Temp Pulse Resp BP Pulse Ox O2 Del Method 02/25/23 10:51 36.7 C 86 18 133/87 98 02/25/23 09:00 36.7 C 86 18 133/87 Room Air 02/25/23 02:17 36.5 C 83 18 142/87 H 98 Room Air Laboratory Results 02/23/23 02/25/23 15:28 05:47 WBC 10.60 16.56 H RBC 4.30 4.08 L Hgb 13.6 12.9 Hct 39.5 37.5 MCV 91.9 91.9 MCH 31.6 31.6 MCHC 34.4 34.4 RDW Std Deviation 45.2 45.0 RDW Coeff of Tony 13.4 13.3 Plt Count 209 170 MPV 11.4 11.2 Sodium 139 Potassium 4.2 Chloride 108 H Carbon Dioxide 24 Anion Gap 7 BUN 14 Creatinine 0.82 Est Cr Clr Drug Dosing 107.8 Est GFR ( Amer) 106.0 Est GFR (Non-Af Amer) 91.4 BUN/Creatinine Ratio 17.1 Glucose 86 Calcium 8.8 Total Bilirubin 0.5 AST 17 ALT 20 Alkaline Phosphatase 147 H Total Protein 6.3 Albumin 3.4 Globulin 2.9 Albumin/Globulin Ratio 1.2 Blood Type O Negative O Negative Antibody Screen NEGATIVE Cancelled Screen Negative
[2023-02-25] MEDS ORDERED: bisacodyL 5 MG TABEC PO SCH (20:00)
--- OUTSIDE RECORDS SUMMARY | 2023-02-28 09:51 | External Medical Summary | Summary of Care ---
Author Name Unknown Organization [facility] Address [address] [facility] [place] [address] Phone [phone] Care Team Providers Care Manager Credit Risk Name Role Phone Unavailable Primary Care Provider Unavailabl e Reason for Visit * Reason Comments Return Visit Encounter Details Date Type Department Care Team (Late st Contact Info) Description 02/16/2023 9:15 AM EDT Office Visit Gynecology/Obstetric s [facility] [address] [place] [address] Valeria Tena PA-C [address] [place] [phone] Supervision of other normal , antepartum*; Multigravida of advanced maternal age in third trimester; Need for rhogam due to Rh negative mother Allergies No known active allergiesdocumented as of this encounter (statuses as of 02/16/2023) Medications Medication Sig Dispensed Refills Start Date End Date Status 27-0.8 MG TABS Take by mouth. 0 Active Hydrocortisone 2.5 % External Ointment APPLY TO BREAST AND GROIN TWICE DAILY UNTIL CLEAR, THEN NEEDED 60 g 3 02/14/2021 Active Ketoconazole 2 % External Cream Apply topically to affected area daily . Apply to gluteal area 60 g 3 06/11/2021 Active Triamcinolone Acetonide 0.1 % External Cream (Aristocort) Apply to trunk and extremities as needed twice daily 160 g 3 06/11/2021 Active Calcipotriene 0.005 % External Ointment Apply topically to affected area 2 times a day . Apply to spots on chest 60 g 2 12/10/2021 Active Betamethasone Dipropionate 0.05 % External Lotion (Diprosone) APPLY TO AFFECTED AREA TWICE A DAY 60 mL 0 09/05/2022 Active Betamethasone Dipropionate 0.05 % External Lotion (Diprosone)Indicati ons:Psoriasis Apply topically to affected area 2 times a day. 120 mL 11 12/31/2022 Active Omeprazole 20 MG Oral Capsule Delayed Release (PriLOSEC)Indicatio ns:Heartburn during in third trimester Take 1 Capsule by mouth in the morning. 30 Capsule 1 01/26/2023 Active documented as of this encounter (statuses as of 02/16/2023) Active Problems Problem Noted Date Diagnosed Date Psoriasis 02/09/2023 Tobacco user 02/09/2023 History of third degree perineal laceration 01/19 Supervision of other normal , antepartu m 12/01/2022 AMA (advanced maternal age) multigravida 35+ Last Assessment & Plan: Low risk NIPT appreciated. Cat bite of finger 08/14/2020 Need for rhogam due to Rh negative mother 2018 Overview: RhoGAM 12/01/22 Estimated Date of Delivery Comme nts Yes 02/24/2023 Based on last me nstrual period of 05/20/2022 documented as of this encounter (statuses as of 02/16/2023) Resolved Problems Problem Noted Date Diagnosed Date Resolved Date Carrier of group B Streptococcus 11/26/2018 12/24/2018 Overview: +RV culture Abnormal ultrasound 11/09/2018 Overview: Prominent renal pelvises Encounter for supervision of normal first 06/03/2018 12/24/2018 Overview: Mildly prominent left renal pelvis for which 4-8 week follow-up ultrasound (24- 28 weeks) is suggested. (at 24wk): Persistent prominence of bilateral renal pelves. Follow-up is recommended at week 30 for further assessment. @37weeks-renal prominence stable 09/28/2018 Tdap Vaccine administered per clinic protocol. Pt given VIS(vaccine information sheet) Dina Ackerman RN documented as of this encounter (statuses as of 02/16/2023) Immunizations Name Administration Dates Next Due COVID-19 mRNA, LNP-s, No Pre serve, 2-Dose Series (Sitemasher) 03/24/2021 RSV Vac., Bivalent, Perfusio n F, Pf,0.5 Ml (Abrysvo) 01/27/2023 SEASONAL INFLUENZA, PF, 6 M & Above, IM , (FLULAVAL or FLUZONE) 01/15/2023,01/25/2022,02/02/2021,2019 Seasonal Influenza Virus Vac cine, Unspecified Formulation 01/18/2019 TDAP (age 10 and older)(Boostrix) 12/01/2022,02/2019 documented as of this encounter Social History Tobacco Use Types Packs/Day Years Used Date Smoking Tobacco: Never Smokeless Tobacco: Never Alcohol Use Standard Drinks/Week Comments No 0 (1 standard drink = 0.6 oz pur e alcohol) AUDIT-C Answer Date Recorded Frequency of Alcohol Consumption Never 05/06/2018 Average Number of Drinks Not on file 019 Frequency of Binge Drinking Not on file 04/20 PHQ-2 Answer Date Recorded PHQ-2 Score 0 06/27/2018 Hunger Vital Sign Answer Date Recorded Within the past 12 months, y ou worried that your food would run out before you got the money to buy more. Never true 11/18/19 23 Within the past 12 months, t he food you bought just didn't last and you didn't have money to get more. Never true 11/17/2022 Eland Depression Scale Answer Date Recorded [place] Depression Scale Total 0 01/26/2023 The thought of harming myself has occurred to me . Never 01/26/2023 Estimated Date of Delivery Comme nts Yes 02/24/2023 Based on last me nstrual period of 05/20/2022 Sex and Gender Information Value Date Recorded Sex Assigned at Female 07/18/2022 1:54 PM EDT Gender Identity Female 07/18/2022 1:54 PM EDT Sexual Orientation Straight 07/18/2022 1: 54 PM EDT Job Start Date Occupation Industry Not on file Not on file Not on file documented as of this encounter Last Filed Vital Signs Vital Sign Reading Time Taken Comments Blood Pressure 118/68 02/16/2023 9:16 AM EDT Pulse - - Temperature - - Respiratory Rate - - Oxygen Saturation - - Inhaled Oxygen Concentration - - Weight 95.3 kg (210 lb) 02/16/2023 9:16 AM EDT Height 165.1 cm (5' 5") 02/16/2023 9:16 AM EDT Body Mass Index 34.95 02/16/2023 9:16 AM EDT documented in this encounter Progress Notes * Valeria Tena PA-C - 02/16/2023 9:28 AM EDT 38w6d Doing well, had mucous discharge with wiping this morning after getting out of shower. Has used restroom since and has not noticed any further. Denies large gush of fluid or continuous leakage. Denies bleeding/contractions. Pos FM. Reviewed labor precautions. Recommend she call ahead. RTC in 1 week Valeria Tena PA-C documented in this encounter Nursing Notes * Alexandrea Baird LPN - 02/16/2023 9:19 AM EDT 38w6d May have lost mucus plug this AM, greenish in color. Denies concerns. IOL 02/27/23. documented in this encounter Plan of Treatment Upcoming Encounters Date Type Department Care Team (Late st Contact Info) Description 02/24/2023 9:15 AM EST Office Visit Gynecology/Obstetrics [facility] [address] [place] [address] Maris James CRNP [address] [place] [address] Health Maintenance Due Date Last Done Comments Diabetes Screening 1985 Hepatitis B (1 of 3 - 3-dose series) 1985 HPV/Co-Test 10/19/2015 Depression Screening 06/23/2019 06/22/2018 COVID-19 Vaccine ( season) 2022 03/24/2021 Cervical Cancer Screening 04/04/2024 Pap Smear 04/04/2024 04/04/2021, 05/06/2018 DTaP,Tdap,and Td Vaccines (3 - Td or Tdap) 12/01/2032 12/01/2022, 09/28/2018 Influenza Vaccine (FLU shot) Completed , 01/25/2022, 02/02/2021, Additional history exists GARDASIL-HPV IMMUNIZATION SERIES Aged Out No longer eligible based on patient's age to complete this topic MENINGOCOCCAL (MENACTRA/MENVEO) Aged Out No longer eligible based on patient's age to complete this topic Pneumococcal Vaccine: Pediatrics (0 to 5 Years) and At-Risk Patients (6 to 64 Years) Aged Out No longer eligible based on patient's age to complete this topic documented as of this encounter Medical Devices Not on filedocumented as of this encounter Visit Diagnoses Diagnosis Supervision of other normal , antepartum- Primary Multigravida of advanced maternal age in third trimester Need for rhogam due to Rh negative mother Need for prophylactic immunotherapy documented in this encounter
--- OUTSIDE RECORDS SUMMARY | 2023-02-28 09:51 | External Medical Summary | Summary of Care ---
Author Name Unknown Organization [facility] Address [address] [facility] [place] [address] Phone [phone] Care Team Providers Care Bit Grinder Name Role Phone Unavailable Primary Care Provider Unavailabl e Reason for Visit * Reason Comments Return Visit Encounter Details Date Type Department Care Team (Late st Contact Info) Description 02/09/2023 3:00 PM EDT Office Visit Gynecology/Obstetric s [facility] [address] [facility] [place] [phone] Sonja Powell [facility] [address] [facility] [place] [phone] 37 weeks gestation of *; Multigravida of advanced maternal age in third trimester; Supervision of other normal , antepartum; Need for rhogam due to Rh negative mother; History of third degree perineal laceration Allergies No known active allergiesdocumented as of this encounter (statuses as of 02/09/2023) Medications Medication Sig Dispensed Refills Start Date [...] as of this encounter (statuses as of 02/09/2023) Active Problems Problem Noted Date Diagnosed Date [...] as of this encounter (statuses as of 02/09/2023) Resolved Problems Problem Noted Date Diagnosed Date [...] as of this encounter (statuses as of 02/09/2023) Immunizations Name Administration Dates Next Due COVID-19 mRNA, LNP-s, No Pre serve, 2-Dose Series (Pfizer) 03/24/2021 RSV Vac., Bivalent, Perfusio n F, [...] money to get more. Never true 11/17/2022 [place] Depression Scale Answer Date Recorded [place] Depression Scale Total 0 01/26/2023 The thought [...] Sign Reading Time Taken Comments Blood Pressure 118/70 02/09/2023 3:03 PM EDT Pulse - - Temperature - - Respiratory Rate - - Oxygen Saturation - - Inhaled Oxygen Concentration - - Weight 98.4 kg (217 lb) 02/09/2023 3:03 PM EDT Height 165.1 cm (5' 5") 02/09/2023 3:03 PM EDT Body Mass Index 36.11 02/09/2023 3:03 PM EDT documented in this encounter Progress Notes * Alexandrea Wilhelm LPN - 02/09/2023 3:09 PM EDT 37w6d Denies concerns. * Sonja Powell MD - 02/09/2023 3:00 PM EDT Patient is 37 year old at 37 6/7 weeks who presents for AIYANA visit Denies contractions, leaking of fluid, or vaginal bleeding. Noted good movement Denies headache, blurry vision, RUQ or epigastric pain. Joined in the room with support person, has a few questions today Problem list reviewed BP 118/70 | Ht 1.651 m (5' 5") | Wt 98.4 kg (217 lb) | LMP 05/20/2022 | BMI 36.11 kg/m | BSA 2.12m FH: 38 FHT: 155 Plan: Labor and preeclampsia warnings reviewed Flu vaccine-already received RSV vaccine-received 01/27 Received update Covid booster (at [facility] 01/26)- prior to RSV Is agreeable for induction to be scheduled after LIBRA. Discuss risk of recurrent third-degree or 4thdegree laceration at delivery Partner is considering vasectomy, will reach out to urology or PCP RTC 1 weeks V Andre ROBERT PhD documented in this encounter Plan of Treatment Upcoming Encounters Date Type Department Care Team (Late st Contact Info) Description 02/16/2023 9:15 AM EDT [facility] [address] [place] [address] Valeria Tena PA-C [address] [place] [phone] 02/24/2023 9:15 AM EST Office Visit Gynecology/Obstetrics [facility] [address] [place] [address] Maris James CRNP [address] [place] [address] Health Maintenance Due Date Last Done Comments [...] as of this encounter Visit Diagnoses Diagnosis 37 weeks gestation of - Primary state, incidental Multigravida of advanced maternal age in third trimester Supervision of other normal , antepartum Need for rhogam due to Rh negative mother Need for prophylactic immunotherapy History of third degree perineal laceration documented in this encounter
--- OUTSIDE RECORDS SUMMARY | 2023-02-28 09:51 | External Medical Summary | Summary of Care ---
Author Name Unknown Organization [facility] Address [address] [facility] [place] [address] Phone [phone] Care Team Providers Care Senior Escrow Officer Name Role Phone Unavailable Primary Care Provider Unavailabl e Reason for Visit * Reason Comments Return Visit Encounter Details Date Type Department Care Team Description 01/26/2023 [facility] [address] [place] [address] Valeria Tena PA-C [address] [place] [address] Supervision of other normal , antepartum*; Multigravida of advanced maternal age in third trimester; Need for rhogam due to Rh negative mother; Heartburn during in third trimester Allergies No known active allergiesdocumented as of this encounter (statuses as of 01/26/2023) Medications Medication Sig Dispensed Refills Start Date [...] as of this encounter (statuses as of 01/26/2023) Active Problems Problem Noted Date Supervision of other normal , a ntepartum 12/01/2022 AMA (advanced maternal age) multigravida 35+ 07/18/2022 Last Assessment & Plan: Low risk NIPT appreciated. Need for rhogam due to Rh negative mothe r 05/07/2018 Overview: RhoGAM 12/01/22 Estimated Date of Delivery Comme nts Yes 02/24/2023 Based on last me nstrual period of 05/20/2022 documented as of this encounter (statuses as of 01/26/2023) Resolved Problems Problem Noted Date Resolved Date Carrier of group B Streptococcus 11/26/2018 12/24/2018 Overview: +RV culture Abnormal ultrasound 11/09/20182018 Overview: Prominent renal pelvises Encounter for supervision of normal first pregna ncy 06/03/2018 12/24/2018 Overview: Mildly prominent left renal pelvis for which 4-8 week follow-up ultrasound (24- 28 weeks) is suggested. (at 24wk): Persistent prominence of bilateral renal pelves. Follow-up is recommended at week 30 for further assessment. @37weeks-renal prominence stable 09/28/2018 Tdap Vaccine administered per clinic protocol. Pt given VIS(vaccine information sheet) Dina Ackerman RN documented as of this encounter (statuses as of 01/26/2023) Immunizations Name Administration Dates Next Due SEASONAL INFLUENZA, PF, 6 M & Above, IM , (FLULAVAL or FLUZONE) 01/15/2023,01/25/2022,02/02/2021, 0 20 TDAP (age 10 and older)(Boostrix) 12/01/2022,02/2019 documented as of this encounter Social History Tobacco Use Types Packs/Day Years Used Date Smoking Tobacco: Never Smokeless Tobacco: Never Alcohol Use Standard Drinks/Week Comments No 0 (1 standard drink = 0.6 oz pur e alcohol) Alcohol Habits Answer Date Recorded How often do you have a drink containing alcohol ? Never 05/06/2018 How many drinks containing a lcohol do you have on a typical day when you are drinking? Not asked How often do you have six or more drinks on one occasion? Not asked Food Insecurity Answer Date Recorded Within the past 12 months, y ou worried that your food would run out before you got money to buy more. Never true 11/17/2022 Within the past 12 months, t he food you bought just didn't last and you didn't have money to get more. Never true 11/17/2022 Estimated Date of Delivery Comme nts Yes 02/24/2023 Based on last me nstrual period of 05/20/2022 Sex Assigned at Date Recorded Female 07/18/2022 1:54 PM E DT Job Start Date Occupation Industry Not on file Not on file Not on file documented as of this encounter Last Filed Vital Signs Vital Sign Reading Time Taken Comments Blood Pressure 126/78 01/26/2023 9:45 AM EDT Pulse - - Temperature - - Respiratory Rate - - Oxygen Saturation - - Inhaled Oxygen Concentration - - Weight 93.9 kg (207 lb) 01/26/2023 9:45 AM EDT Height 165.1 cm (5' 5") 01/26/2023 9:45 AM EDT Body Mass Index 34.45 01/26/2023 9:45 AM EDT documented in this encounter Progress Notes * Valeria Tena PA-C - 01/26/2023 9:51 AM EDT 35w6d Increase in reflux symptoms despite Pepcid. Discussed options, pt would like to try Prilosec. Reviewed take 1 tab in morning, 30 minutes prior to eating. Okay for PRN Pepcid at bedtime as well. Reviewed milk when reflux occurs can help. Counseled on GBS with next visit. Denies bleeding, leaking, contractions. Baby is moving well. RTC in 1 week Valeria Tena PA-C documented in this encounter Nursing Notes * Alexandrea Wilhelm LPN - 01/26/2023 9:47 AM EDT 35w6d Heartburn- not well controlled with Pepcid. documented in this encounter Plan of Treatment Upcoming Encounters Date Type Specialty Care Team Description 02/02/2023 Office Visit Gynecology Obstetrics Bobby Le MD [address] [place] [address] 02/09/2023 Office Visit Gynecology Obstetrics Sonja Powell MD [address] [place] [phone] 02/16/2023 Office Visit Gynecology Obstetrics Valeria Tena PA-C [address] [place] [address] 02/24/2023 Office Visit Gynecology Obstetrics Maris James CRNP [address] [place] [address] Health Maintenance Due Date Last Done Comments [...] Rh negative mother Need for prophylactic immunotherapy Heartburn during in third trimester documented in this encounter
--- OUTSIDE RECORDS SUMMARY | 2023-02-28 09:51 | External Medical Summary ---
Author Name Unknown Address Unknown Organization K01:[facility] [place] [address] [facility] [address] [facility] [address] Laboratory Report Ordering Provider Test Date Status RISSA HOU 02/02/2023 15:52:02 Final Observation Date Value Abnormality Reference (Units ) Status Streptococcus agalactiae DNA [Presence] in Specimen by ANNA with probe detection 02/02/2023 15:52:02 Negative Negative Final No Group B Streptococcus det ected by culture-enhanced PCR (amplified probe).
The collection of vaginal/rectal swab specimen combinations (FDA approved specimen type) is optimal for the detection of Group B Streptococcus. Single source collection (vaginal only or rectal only) or alternate specimen sources may lead to false negative results. Performing Location [facility] [place] [address] [place] [address]
--- OUTSIDE RECORDS SUMMARY | 2023-02-28 09:51 | External Medical Summary | Summary of Care ---
Author Name Unknown Organization [facility] Address [address] [facility] [place] [address] Phone [phone] Care Team Providers Care Retail Sales Associate Bilingual Name Role Phone Unavailable Primary Care Provider Unavailabl e Reason for Visit * Reason Comments Return Visit Encounter Details Date Type Department Care Team Description 02/02/2023 [facility] [address] [place] [address] Bobby Le MD [address] [place] [address] Multigravida of advanced maternal age in third trimester*; Need for rhogam due to Rh negative mother; Supervision of other normal , antepartum Allergies No known active allergiesdocumented as of this encounter (statuses as of 02/02/2023) Medications Medication Sig Dispensed Refills Start Date [...] as of this encounter (statuses as of 02/02/2023) Active Problems Problem Noted Date Supervision of [...] as of this encounter (statuses as of 02/02/2023) Resolved Problems Problem Noted Date Resolved Date [...] as of this encounter (statuses as of 02/02/2023) Immunizations Name Administration Dates Next Due RSV Vac., Bivalent, Perfusio n F, Pf,0.5 Ml (Abrysvo) 01/27/2023 SEASONAL INFLUENZA, PF, 6 M & Above, IM , (FLULAVAL or FLUZONE) 01/15/2023,01/25/2022,02/02/2021, 020 TDAP (age 10 and older)(Boostrix) 12/01/2022,02/2019 documented [...] Sign Reading Time Taken Comments Blood Pressure 122/74 02/02/2023 2:57 PM EDT Pulse - - Temperature - - Respiratory Rate - - Oxygen Saturation - - Inhaled Oxygen Concentration - - Weight 95.7 kg (211 lb) 02/02/2023 2:57 PM EDT Height 165.1 cm (5' 5") 02/02/2023 2:57 PM EDT Body Mass Index 35.11 02/02/2023 2:57 PM EDT documented in this encounter Progress Notes * Bobby Le MD - 02/02/2023 3:07 PM EDT Pt doing well No complaints RTC 1 week GBS culx done documented in this encounter Nursing Notes * Alexandrea Wilhelm LPN - 02/02/2023 3:01 PM EDT 36w6d GBS today. Had RSV vaccine last week. documented in this encounter Plan of Treatment Upcoming Encounters Date Type Specialty Care Team Description 02/09/2023 Office Visit Gynecology Obstetrics Sonja Powell MD [address] [place] [address] [place] [phone] 02/16/2023 Office Visit Gynecology Obstetrics Valeria Tena PA-C [address] [place] [address] 02/24/2023 Office Visit Gynecology Obstetrics Maris James CRNP [address] [place] [address] Scheduled Orders Name Type Priority Associated Diagnoses Orde r Schedule GROUP B STREP CULTURE/PCR Lab Routine Multigravida of advanced maternal age in third trimester Need for rhogam due to Rh negative mother Supervision of other normal , antepartum Ordered: 02/02/2023 Health Maintenance Due Date Last Done Comments [...] as of this encounter Visit Diagnoses Diagnosis Multigravida of advanced maternal age in third trimester- Primary Need for rhogam due to Rh negative mother Need for prophylactic immunotherapy Supervision of other normal , antepartum documented in this encounter
--- OUTSIDE RECORDS SUMMARY | 2023-02-28 09:51 | External Medical Summary | Summary of Care ---
Author Name Unknown Organization [facility] Address [address] [facility] [place] [address] Phone [phone] Care Team Providers Care Machine Staker Name Role Phone Unavailable Primary Care Provider Unavailabl e Reason for Visit * Reason Comments Return Visit Encounter Details Date Type Department Care Team (Late st Contact Info) Description 02/09/2023 3:00 PM EDT Office Visit Gynecology/Obstetric s [facility] [address] [facility] [place] [address] Sonja Powell [facility] [address] [facility] [facility] [place] [phone] 37 weeks gestation of *; Multigravida of [...] money to get more. Never true 11/17/2022 [place] Depression Scale Answer Date Recorded [place] Depression Scale Total 0 01/26/2023 The thought [...] will reach out to urology or PCP IOL scheduled for 02/27 RTC 1 weeks Marlene Powell MD PhD documented in this encounter Plan of Treatment Upcoming Encounters Date Type Department Care Team (Late st Contact Info) Description 02/16/2023 9:15 AM EDT Office Visit Gynecology/Obstetrics [facility] [address] [place] [address] Valeria Tena PA-C [address] [place] [address] 02/24/2023 9:15 AM EST Office Visit Gynecology/Obstetrics [facility] [address] [place] [address] Maris James CRNP [address] [place] [address] Health Maintenance Due Date Last Done Comments [...]
--- OUTSIDE RECORDS SUMMARY | 2023-02-28 09:51 | External Medical Summary | Summary of Care ---
Author Name Unknown Organization [facility] Address [address] [place] [address] Phone [phone] Care Team Providers Care Supervisor Wet Room Name Role Phone Unavailable Primary Care Provider Unavailabl e Reason for Visit * Reason Onset Date Comments Advice 02/20/2023 Encounter Details Date Type Department Care Team (Late st Contact Info) Description 02/20/2023 Telephone Gynecology/Obstetrics [facility] [address] [place] [address] Sonja Powell MD [address] [place], [place] [phone] Advice Allergies No known active allergiesdocumented as of this encounter (statuses as of 02/20/2023) Medications Medication Sig Dispensed Refills Start Date [...] as of this encounter (statuses as of 02/20/2023) Active Problems Problem Noted Date Diagnosed Date [...] as of this encounter (statuses as of 02/20/2023) Resolved Problems Problem Noted Date Diagnosed Date [...] as of this encounter (statuses as of 02/20/2023) Immunizations Name Administration Dates Next Due COVID-19 [...] money to get more. Never true 11/17/2022 [place] Depression Scale Answer Date Recorded [place] Depression Scale Total 0 01/26/2023 The thought [...] on file documented as of this encounter Miscellaneous Notes * Telephone Encounter - Alexandrea Baird LPN - 02/20/2023 4:40 PM EDT Patient called back. She is agreeable to moving up IOL to this coming 02/23/23. Reviewed instructions. * Telephone Encounter - Alexandrea Baird LPN - 02/20/2023 4:06 PM EDT Patient called back. She is going to discuss with her and will call back prior to 5. * Telephone Encounter - Camilla Rehman RN - 02/20/2023 2:[address] Powell wanted to offer to change pts induction date to this coming Thursday instead of 02/27 She will be 39w[address] Powell is okay with this if pt is. LM for pt to call office to discuss. Dr. Powell thought she wanted to wait until after her due date but wanted to offer. documented in this encounter Plan of Treatment Upcoming Encounters Date Type Department Care Team (Late st Contact Info) Description 02/24/2023 9:15 AM EST [facility] [address] [place] [address] Maris James CRNP [address] [place] [address] Health Maintenance Due Date Last Done Comments [...]
--- OUTSIDE RECORDS SUMMARY | 2023-02-28 09:51 | External Medical Summary | Summary of Care ---
Author Name Unknown Organization [facility] Address [address] [facility] [place] [address] Phone [phone] Care Team Providers Care Deck Lid Fitter Name Role Phone Unavailable Primary Care Provider Unavailabl e Reason for Visit * Reason Comments Return Visit Encounter Details Date Type Department Care Team Description 02/02/2023 [facility] [address] [place] [address] Bobby Le MD [address] [place] [address] Multigravida of advanced maternal age in third [...] Office Visit Gynecology Obstetrics Sonja Powell MD [address] [place] [address] [place] [phone] 02/16/2023 Office Visit Gynecology Obstetrics Valeria Tena PA-C [address] [place] [address] 02/24/2023 Office Visit Gynecology Obstetrics Maris James CRNP [address] [place] [address] Pending Results Name Type Priority Associated Diagnoses Date /Time GROUP B STREP CULTURE/PCR Lab Routine Multigravida of advanced maternal age in third trimester Need for rhogam due to Rh negative mother Supervision of other normal , antepartum 02/02/2023 3:52 PM EDT Health Maintenance Due Date Last Done Comments [...]
--- OUTSIDE RECORDS SUMMARY | 2023-02-28 09:51 | External Medical Summary | Summary of Care ---
Author Name Unknown Organization [facility] Address [address] [facility] [place] [address] Phone [phone] Care Team Providers Care Stiff Neck Loader Name Role Phone Unavailable Primary Care Provider Unavailabl e Reason for Visit * Reason Onset Date Comments Return Visit Medication Administration 01/15/2023 Flu an d/or Pneumo Inj Encounter Details Date Type Department Care Team Description 01/15/2023 Office Visit Gynecology/Obstetrics [facility] [address] [place] [address] Bobby Le MD [address] [place] [address] Multigravida of advanced maternal age in third trimester*; Need for rhogam due to Rh negative mother; Supervision of other normal , antepartum; Need for prophylactic vaccination and inoculation against influenza Allergies No known active allergiesdocumented as of this encounter (statuses as of 01/16/2023) Medications Medication Sig Dispensed Refills Start Date [...] Active Betamethasone Dipropionate 0.05 % External Lotion (Diprosone)Indication s:Psoriasis Apply topically to affected area 2 times a day. 120 mL 11 12/31/2022 Active documented as of this encounter (statuses as of 01/16/2023) Active Problems Problem Noted Date Supervision of [...] as of this encounter (statuses as of 01/16/2023) Resolved Problems Problem Noted Date Resolved Date [...] as of this encounter (statuses as of 01/16/2023) Immunizations Name Administration Dates Next Due SEASONAL [...] Sign Reading Time Taken Comments Blood Pressure 112/64 01/15/2023 2:55 PM EDT Pulse - - Temperature - - Respiratory Rate - - Oxygen Saturation - - Inhaled Oxygen Concentration - - Weight 93.4 kg (206 lb) 01/15/2023 2:55 PM EDT Height 165.1 cm (5' 5") 01/15/2023 2:55 PM EDT Body Mass Index 34.28 01/15/2023 2:55 PM EDT documented in this encounter Progress Notes * Bobby Le MD - 01/15/2023 3:17 PM EDT Pt doing well No complaints RTC 2 weeks * Jenise Sims LPN - 01/15/2023 2:55 PM EDT documented in this encounter Nursing Notes * Jenise Sims LPN - 01/16/2023 12:24 PM EDT Patient here for flu injection. Patient doing well no complaints. Injection given IM as ordered. Patient tolerated well. Patient to follow up as directed. Patient instructed to call if any complications. Patient verbalized understanding of instructions given and her follow up appt for 2 weeks Injection site: Right Deltoid Medication Source: Dispensed stock medication documented in this encounter Plan of Treatment Upcoming Encounters Date Type Specialty Care Team Description 01/26/2023 Office Visit Gynecology Obstetrics Valeria Tena PA-C [address] [place] [address] 02/02/2023 Office Visit Gynecology Obstetrics Bobby Le MD [address] [place] [address] 02/09/2023 Office Visit Gynecology Obstetrics Sonja Powell MD [address] [place] [address] 02/16/2023 Office Visit Gynecology Obstetrics Valeria Tena PA-C [address] [place] [address] 02/24/2023 Office Visit Gynecology Obstetrics Maris James CRNP [address] [place] [address] Health Maintenance Due Date Last Done Comments Diabetes Screening 1985 Hepatitis B (1 of 3 - 3-dose series) 1985 HPV/Co-Test 10/19/2015 Depression Screening 06/23/2019 06/22/2018 COVID-19 Vaccine (2 - Pfizer series) 05/19/2021 03/24/2021 Cervical Cancer Screening 04/04/2024 Pap Smear [...] immunotherapy Supervision of other normal , antepartum Need for prophylactic vaccination and inoculation against influenza documented in this encounter
--- OUTSIDE RECORDS SUMMARY | 2023-02-28 09:51 | External Medical Summary | Summary of Care ---
Author Name Unknown Organization [facility] Address [address] [place] [address] Phone [phone] Care Team Providers Care Able Seaman Name Role Phone Unavailable Primary Care Provider Unavailabl e Reason for Visit * Reason Onset Date Comments Advice 02/20/2023 Encounter Details Date Type Department Care Team (Late st Contact Info) Description 02/20/2023 Telephone Gynecology/Obstetrics [facility] [address] [place] [address] Sonja Powell MD [address] [place], [place] [phone] Advice Allergies No known active allergiesdocumented as [...] money to get more. Never true 11/17/2022 [facility] Depression Scale Answer Date Recorded [facility] Depression Scale Total 0 01/26/2023 The thought [...] 02/24/2023 9:15 AM EST Office [facility] [address] [place] [address] Maris James CRNP [address] [place] [address] Health Maintenance Due Date Last Done Comments [...]
--- OUTSIDE RECORDS SUMMARY | 2023-02-28 09:51 | External Medical Summary | Summary of Care ---
Author Name Unknown Organization [facility] Address [address] [place] [address] Phone [phone] Care Team Providers Care Motion Picture Critic Name Role Phone Unavailable Primary Care Provider Unavailabl e Reason for Visit * Reason Onset Date Comments Advice 02/20/2023 Encounter Details Date Type Department Care Team (Late st Contact Info) Description 02/20/2023 Telephone Gynecology/Obstetrics [facility] [address] [place] [address] Sonja Powell MD [address] [place], [place] [phone] Advice Allergies No known active allergiesdocumented as [...] money to get more. Never true 11/17/2022 [place] Depression Scale Answer Date Recorded [place] Depression Scale Total 0 01/26/2023 The thought [...] 02/24/2023 9:15 AM EST Office Visit Gynecology/Obstetrics [facility] [address] [place] [address] Maris James CRNP [address] [place] [address] Health Maintenance Due Date Last Done Comments [...]
--- OUTSIDE RECORDS SUMMARY | 2023-02-28 09:52 | External Medical Summary | Summary of Care ---
Author Name Unknown Organization [facility] Address [address] [facility] [place] [address] Phone [phone] Care Team Providers Care Hand Paster Name Role Phone Unavailable Primary Care Provider Unavailabl e Reason for Visit * Reason Comments Return Visit Encounter Details Date Type Department Care Team Description 11/13/2022 Office Visit Gynecology/Obstetrics Amosnito Basurto [address] [place] [address] Maris James CRNP [address] [place] [address] Multigravida of advanced maternal age in second trimester*; Need for rhogam due to Rh negative mother Allergies No known active allergiesdocumented as of this encounter (statuses as of 11/13/2022) Medications Medication Sig Dispensed Refills Start Date [...] A DAY 60 mL 0 09/05/2022 Active documented as of this encounter (statuses as of 11/13/2022) Active Problems Problem Noted Date AMA (advanced maternal age) multigravida 35+ 07/18/2022 Last Assessment & Plan: Low risk NIPT appreciated. Need for rhogam due to Rh negative mothe r 05/07/2018 Estimated Date of Delivery Comme nts Yes 02/24/2023 Based on last me nstrual period of 05/20/2022 documented as of this encounter (statuses as of 11/13/2022) Resolved Problems Problem Noted Date Resolved Date [...] as of this encounter (statuses as of 11/13/2022) Immunizations Name Administration Dates Next Due Seasonal Influenza, Quadriva lent, No Preserve, 6 Mons & Above, IM 01/25/2022,02/02/2021,01/24/2020 TDAP (age 10 and older)(Boostrix) 09/28/2018 documented as of this encounter Social History [...] got money to buy more. Never true 07/18/2022 Within the past 12 months, t he food you bought just didn't last and you didn't have money to get more. Never true 07/18/2022 Estimated Date of Delivery Comme nts Yes 02/24/2023 Based on last me nstrual period of 05/20/2022 Sex Assigned at Date Recorded Female 07/18/2022 1:54 PM E DT Job Start Date Occupation Industry Not on file Not on file Not on file documented as of this encounter Last Filed Vital Signs Vital Sign Reading Time Taken Comments Blood Pressure 106/60 11/13/2022 10:38 AM EDT Pulse - - Temperature - - Respiratory Rate - - Oxygen Saturation - - Inhaled Oxygen Concentration - - Weight 88.5 kg (195 lb) 11/13/2022 10:38 AM EDT Height 160 cm (5' 3") 11/13/2022 10:38 AM EDT Body Mass Index 34.54 11/13/2022 10:38 AM EDT documented in this encounter Progress Notes * YOGI Klein - 11/13/2022 10:46 AM EDT 25w2d Complaints: none Feeling well overall. Great FM. No contractions, bleeding, or LOF. Glucola, Rhogam, TDAP next visit. YOGI lKein documented in this encounter Nursing Notes * Jenise Sims LPN - 11/13/2022 10:37 AM EDT 25w2d Denies any issues documented in this encounter Plan of Treatment Upcoming Encounters Date Type Specialty Care Team Description 12/01/2022 Laboratory Laboratory Hardeep Basurto [address] [facility] [place] [address] 12/01/2022 Office Visit Gynecology Obstetrics Backer, YOGI Yates [address] [place] [address] Scheduled Orders Name Type Priority Associated Diagnoses Orde r Schedule TYPE AND SCREEN Lab Routine Multigravida of advanced maternal age in second trimester Expected: 11/27/2022, Expires: 12/15/2023 50-G GESTATIONAL GLUCOSE, 1 HOUR Lab Routine Multigravida of advanced maternal age in second trimester Expected: 11/27/2022 (Approximate), Expires: 11/14/2023 CBC WITH WBC DIFFERENTIAL AND ANEMIA REFLEX WORKUP Lab Routine Multigravida of advanced maternal age in second trimester Expected: 11/27/2022 (Approximate), Expires: 11/14/2023 SYPHILIS ANTIBODY SCREEN WITH REFLEX TO RPR Lab Routine Multigravida of advanced maternal age in second trimester Expected: 11/27/2022 (Approximate), Expires: 11/14/2023 Health Maintenance Due Date Last Done Comments Diabetes Screening 1985 Hepatitis B (1 of 3 - 3-dose series) 1985 HPV/Co-Test 10/19/2015 Depression Screening, Annual for Pts 12 and Over 06/23/2019 06/22/2018 COVID-19 Vaccine (2 - Pfizer series) 05/19/2021 03/24/2021 Influenza Vaccine (FLU shot) (#1) 2022 01/25/2022, 02/02/2021, 01/24/2020, Additional history exists Cervical Cancer Screening 04/04/2024 Pap Smear 04/04/2024 04/04/2021, 05/06/2018 DTaP,Tdap,and Td Vaccines (2 - Td or Tdap) 09/28/2028 09/28/2018 Hepatitis C Screening Completed 07/18/2022 , 07/18/2022, 07/18/2022, Additional history exists GARDASIL-HPV IMMUNIZATION SERIES Aged [...] Diagnosis Multigravida of advanced maternal age in second trimester- Primary Need for rhogam due to Rh negative mother Need for prophylactic immunotherapy documented in this encounter
--- OUTSIDE RECORDS SUMMARY | 2023-02-28 09:52 | External Medical Summary ---
Author Name Unknown Address Unknown Organization [id number]:[facility] - [address] [facility] [address] [place] [address] Laboratory Report Ordering Provider Test Date Status DAYNA WILEY 12/01/2022 09:39:32 Final Observation Date Value Abnormality Reference (Units ) Status SYNC LEUKOCYTES IN BLOOD BY AUTOMATED COUNT 12/01/2022 09:39:32 10.37 4.00-10.80 (K/uL) Final Segs 12/01/2022 09:39:32 77.2 Above high normal 40.0-75.0 (%) Final Lymphs % 12/01/2022 09:39:32 16.4 Below low normal 18.0-42.0 (%) Final Monos 12/01/2022 09:39:32 5.4 1.0-11.0 (%) Final Eosinophils 12/01/2022 09:39:32 0.4 0.0-6.0 (%) Final Basos 12/01/2022 09:39:32 0.1 0.0-2.0 (%) Final Immature Granulocyte, Percent 12/01/2022 09:39:32 0.5 0.0-2.0 (%) Final Absolute Segs 12/01/2022 09:39:32 8.01 Above high normal 1.80-7.70 (K/uL) Final Lymphs, absolute 12/01/2022 09:39:32 1.70 1.00-4.80 (K/ul) Final Monos, Abs 12/01/2022 09:39:32 0.56 0.00-1.10 (K/uL) Final Eos, Abs 12/01/2022 09:39:32 0.04 0.00-0.70 (K/uL) Final Basos, Abs 12/01/2022 09:39:32 0.01 0.00-0.20 (K/uL) Final Immature Granulocytes, Number 12/01/2022 09:39:32 0.05 0.00-0.20 (K/uL) Final Performing Location LABORATORY [facility] - [address] [facility] [address]
--- OUTSIDE RECORDS SUMMARY | 2023-02-28 09:52 | External Medical Summary | Summary of Care ---
Author Name Unknown Organization [facility] Address [address] [facility] [place] [address] Phone [phone] Care Team Providers Care Bilingual Sales Assistant Name Role Phone Unavailable Primary Care Provider Unavailabl e Reason for Visit * Reason Comments Return Visit Encounter Details Date Type Department Care Team Description 10/13/2022 [facility] [address] [place] [address] Valeria Tena PA-C [address] [place] [address] Multigravida of advanced maternal age in second trimester*; Need for rhogam due to Rh negative mother; Supervision of high-risk , unspecified trimester Allergies No known active allergiesdocumented as of this encounter (statuses as of 10/13/2022) Medications Medication Sig Dispensed Refills Start Date [...] as of this encounter (statuses as of 10/13/2022) Active Problems Problem Noted Date AMA (advanced maternal age) multigravida 35+ 07/18/2022 Last Assessment & Plan: Low risk NIPT appreciated. Need for rhogam due to Rh negative mothe r 05/07/2018 Estimated Date of Delivery Comme nts Yes 02/24/2023 Based on last me nstrual period of 05/20/2022 documented as of this encounter (statuses as of 10/13/2022) Resolved Problems Problem Noted Date Resolved Date [...] as of this encounter (statuses as of 10/13/2022) Immunizations Name Administration Dates Next Due Seasonal [...] Sign Reading Time Taken Comments Blood Pressure 102/60 10/13/2022 9:13 AM EDT Pulse - - Temperature - - Respiratory Rate - - Oxygen Saturation - - Inhaled Oxygen Concentration - - Weight 88.5 kg (195 lb) 10/13/2022 9:13 AM EDT Height 160 cm (5' 3") 10/13/2022 9:13 AM EDT Body Mass Index 34.54 10/13/2022 9:13 AM EDT documented in this encounter Progress Notes * Valeria Tena PA-C - 10/13/2022 9:29 AM EDT 20w6d Had anatomy ultrasound with MFM, follow up as clinically indicated. Denies complaints today. Counseled on MSFAP, patient would like to complete today. We discussed need to complete before 22/6weeks. Denies leaking of fluid, vaginal bleeding, or contractions. + Quickening. RTC in 4 weeks Valeria Tena PA-C documented in this encounter Nursing Notes * Jenise Sims LPN - 10/13/2022 9:11 AM EDT 20w6d Denies any issues documented in this encounter Plan of Treatment Upcoming Encounters Date Type Specialty Care Team Description 11/13/2022 Office Visit Gynecology Obstetrics Jacob, YOGI Williamson [address] [place] [address] Pending Results Name Type Priority Associated Diagnoses Date /Time MATERNAL SERUM AFP Lab Routine Multigravida of advanced maternal age in second trimester Supervision of high-risk , unspecified trimester 10/13/2022 9:41 AM EDT Health Maintenance Due Date Last Done Comments Diabetes Screening 1985 Hepatitis B (1 of 3 - 3-dose series) 1985 Depression Screening, Annual for Pts 12 and Over 06/23/2019 06/22/2018 COVID-19 Vaccine (2 - Pfizer series) 05/19/2021 03/24/2021 Pap Smear 04/04/2026 04/04/2021, 05/06/2018 DTaP,Tdap,and Td Vaccines (2 - Td or Tdap) 09/28/2028 09/28/2018 Influenza Vaccine (FLU shot) Completed 11/2021, 02/02/2021, 01/24/2020, Additional history exists Hepatitis C Screening Completed 07/18/2022 , 07/18/2022, [...] mother Need for prophylactic immunotherapy Supervision of high-risk , unspecified trimester documented in this encounter
--- OUTSIDE RECORDS SUMMARY | 2023-02-28 09:52 | External Medical Summary ---
Author Name Unknown Address Unknown Organization [id number]:LABORATORY [facility] [address] - [address] [place] [address] Laboratory Report Ordering Provider Test Date Status SAURABHDAYNA 12/01/2022 09:39:32 Final Observation Date Value Abnormality Reference (Units ) Status Glucose [Moles/volume] in Serum or Plasma --1 hour post 50 g glucose PO 12/01/2022 09:39:32 112 70-129 (mg/dL) Final Performing Location LABORATORY [facility] [address] - [address] [place] [address]
--- OUTSIDE RECORDS SUMMARY | 2023-02-28 09:52 | External Medical Summary | Summary of Care ---
Author Name Unknown Organization [facility] Address [address] [facility] [place] [address] Phone [phone] Care Team Providers Care Strategic Manager Name Role Phone Unavailable Primary Care Provider Unavailabl e Reason for Visit * Reason Comments Return Visit Encounter Details Date Type Department Care Team Description 12/01/2022 [facility] [address] [place] [address] BackJanet linares CRNP [address] [facility] [place] [address] Supervision of other normal , antepartum*; Multigravida of advanced maternal age in second trimester; Need for rhogam due to Rh negative mother; Need for prophylactic vaccination with combined tfvappvoqi-sgsmbnd-vwe tussis (DTP) vaccine Allergies No known active allergiesdocumented as of this encounter (statuses as of 12/01/2022) Medications Medication Sig Dispensed Refills Start Date [...] A DAY 60 mL 0 09/05/2022 Active Hospital, Clinic, or Other Facility Administered Medication Ordered Dose Route Frequency Start Date End Date Status Rho D Immune Globulin (Rhophylac) inj 300 mcgIndications:Need for rhogam due to Rh negative mother 300 mcg IM ONCE 12/01/2022 12/01/2022 Ended documented as of this encounter (statuses as of 12/01/2022) Active Problems Problem Noted Date Supervision of [...] as of this encounter (statuses as of 12/01/2022) Resolved Problems Problem Noted Date Resolved Date [...] as of this encounter (statuses as of 12/01/2022) Immunizations Name Administration Dates Next Due Seasonal Influenza, Quadriva lent, No Preserve, 6 Mons & Above, IM 01/25/2022,02/02/2021,01/24/2020 TDAP (age 10 and older)(Boostrix) 12/01/2022,02/2019 documented [...] Sign Reading Time Taken Comments Blood Pressure 104/64 12/01/2022 8:47 AM EDT Pulse - - Temperature - - Respiratory Rate - - Oxygen Saturation - - Inhaled Oxygen Concentration - - Weight 89.4 kg (197 lb) 12/01/2022 8:47 AM EDT Height - - Body Mass Index 32.78 11/13/2022 10:38 AM EDT documented in this encounter Progress Notes * YOGI Cavazos - 12/01/2022 8:40 AM EDT 27w 6d Labs, RhoGAM, Tdap today. + movement. No regular ctx, leaking/bleeding. Questions answered regarding snoring, sleep positions, heartburn. 2 week return YOGI Lei documented in this encounter Nursing Notes * Hayley Horton LPN - 12/01/2022 9:53 AM EDT Patient here for tdap & Rhogam injection. Patient doing well no complaints. Injection given IM as ordered. Patient tolerated well. Patient to follow up as directed. Patient instructed to call if any complications. Patient verbalized understanding of instructions given. Injection site: Right Deltoid- tdap Left Glute- Rhogam Medication Source: Dispensed stock medication * Hayley Horton LPN - 12/01/2022 8:48 AM EDT 27w6d Denies vaginal bleeding/rom + movement Gtt today documented in this encounter Plan of Treatment Upcoming Encounters Date Type Specialty Care Team Description 12/16/2022 Office Visit Gynecology Obstetrics Backer, YOGI Yates [address] [facility] [place] [address] Health Maintenance Due Date Last Done Comments [...] - Td or Tdap) 12/01/2032 12/01/2022, 09/28/2018 Hepatitis C Screening Completed 07/18/2022 , [...] Primary Multigravida of advanced maternal age in second trimester Need for rhogam due to Rh negative mother Need for prophylactic immunotherapy Need for prophylactic vaccination with combined katdavgkbz-punediu-tqwqbwobx (DTP) vaccine documented in this encounter Administered Medications Inactive Administered Medications - up to 3 most recent administrations Medication Order MAR Action Action Date Dose Rate Site Rho D Immune Globulin (Rhophylac) inj 300 mcg 300 mcg, Intramuscular, ONCE, On 12/01/22 at 0915, For 1 dose, Do not administer until type and screen has been collected! 1 MCG = 5 INTERNATIONAL UNITS Given 12/01/2022 9:50 AM EDT 300 mcg Dorsogluteal Left documented in this encounter
--- OUTSIDE RECORDS SUMMARY | 2023-02-28 09:52 | External Medical Summary | Summary of Care ---
Author Name Unknown Organization [facility] Address [address] [place] [address] Phone [phone] Care Team Providers Care Blood Typer Name Role Phone Unavailable Primary Care Provider Unavailabl e Reason for Visit * Evaluate & Treat - Unlimited Visits (Within 10 days (routine)) - Pending Review Specialty Diagnoses / Procedures Referred By Lilibeth byers Referred To Contact Obstetrics/Gynecology / Maternal Medicine Diagnoses Multigravida of advanced maternal age in second trimester Meg Nuno CNM [address] [place] [address] Referral ID Status Reason Start Date Expiration Date Visits Requested Visits Authorized [id number] Pending Review Specialty Services Required 08/18/[phone] Encounter Details Date Type Department Care Team Description 10/10/2022 Office Visit [facility] OB Maternal Medicine [facility] Laci Sanchez [address] [place] [address] [address] [place], [place] [id number] Camille, Kristaljuanjose Gonzalez, DO [address] [place], [place] [id number] Multigravida of advanced maternal age in second trimester*; Encounter for anatomic survey Allergies No known active allergiesdocumented as of this encounter (statuses as of 10/10/2022) Medications Medication Sig Dispensed Refills Start Date [...] as of this encounter (statuses as of 10/10/2022) Active Problems Problem Noted Date AMA (advanced maternal age) multigravida 35+ 07/18/2022 Last Assessment & Plan: Low risk NIPT appreciated. Need for rhogam due to Rh negative mothe r 05/07/2018 Estimated Date of Delivery Comme nts Yes 02/24/2023 Based on last me nstrual period of 05/20/2022 documented as of this encounter (statuses as of 10/10/2022) Resolved Problems Problem Noted Date Resolved Date [...] as of this encounter (statuses as of 10/10/2022) Immunizations Name Administration Dates Next Due Seasonal [...] on file documented as of this encounter Progress Notes * Kristal Adam, - 10/10/2022 1:34 PM EDT MATERNAL MEDICINE VISIT Lola Zendejas presented today at 20w3d for an ultrasound and follow-up of her high risk . She was seen for the following indications: Problem List Items Addressed This Visit Other AMA (advanced maternal age) multigravida 35+ - Primary Low risk NIPT appreciated. Other Visit Diagnoses Encounter for anatomic survey We reviewed today's ultrasound findings. 20w3d for anatomical survey. Normal growth with no ultrasonic evidence of structural abnormalities. (For full details, please refer to ultrasound report provided separately). Ms. Zendejas's questions were answered to her satisfaction. She was advised to contact our office orher OB provider for any additional questions regarding her . RECOMMENDATIONS: Follow up with MFM for ultrasound as clinically indicated. Thank you for allowing us to participate in the care of this patient. Please call with any questions. Kristal Obrien DO 10/10/2022 1:34 PM documented in this encounter Miscellaneous Notes * Assessment & Plan Note - Kristal Adam DO - 10/10/2022 1:34 PM EDT Associated Problem(s): AMA (advanced maternal age) multigravida 35+ Low risk NIPT appreciated. documented in this encounter Plan of Treatment Upcoming Encounters Date Type Specialty Care Team Description 10/13/2022 Office Visit Gynecology Obstetrics Valeria Tena PA-C [address] [place] [address] Health Maintenance Due Date Last Done Comments [...] advanced maternal age in second trimester- Primary Encounter for anatomic survey documented in this encounter
--- OUTSIDE RECORDS SUMMARY | 2023-02-28 09:52 | External Medical Summary ---
Author Name Unknown Address Unknown Organization [id number]:LABORATORY [facility] - [address] [place] [address] Laboratory Report Ordering Provider Test Date Status ADYNA WILEY 12/01/2022 09:39:32 Final Observation Date Value Abnormality Reference (Units ) Status ABO 12/01/2022 09:39:32 O Final RH 12/01/2022 09:39:32 Negative Final RED BLOOD CELL ANTIBODY SCREEN 12/01/2022 09:39:32 Negative Final SPECIMEN EXPIRATION DATE 12/01/2022 09:39:32 12/04/2022 23:59 Final Performing Location LABORATORY [facility] - [address] [place] [address]
--- OUTSIDE RECORDS SUMMARY | 2023-02-28 09:52 | External Medical Summary | Summary of Care ---
Author Name Unknown Organization [facility] Address [address] [facility] [place] [address] Phone [phone] Care Team Providers Care Knockdown Man Name Role Phone Unavailable Primary Care Provider Unavailabl e Reason for Visit * Reason Comments Outpatient Testing Encounter Details Date Type Department Care Team Description 12/01/2022 Laboratory [facility], [facility] [address] [facility] [address] [facility] [address] Multigravida of advanced maternal age in second trimester Allergies No known active allergiesdocumented as [...] on file documented as of this encounter Plan of Treatment Upcoming Encounters Date Type Specialty Care Team Description 12/16/2022 Office Visit Gynecology Obstetrics Backer, YOGI Yates [address] [place] [address] Pending Results Name Type Priority Associated Diagnoses Date /Time TYPE AND SCREEN Lab Routine Multigravida of advanced maternal age in second trimester 12/01/2022 9:39 AM EDT 50-G GESTATIONAL GLUCOSE, 1 HOUR Lab Routine Multigravida of advanced maternal age in second trimester 12/01/2022 9:39 AM EDT CBC WITH WBC DIFFERENTIAL AND ANEMIA REFLEX WORKUP Lab Routine Multigravida of advanced maternal age in second trimester 12/01/2022 9:39 AM EDT SYPHILIS ANTIBODY SCREEN WITH REFLEX TO RPR Lab Routine Multigravida of advanced maternal age in second trimester 12/01/2022 9:39 AM EDT ANEMIA CBC Lab Routine Multigravida of advanced maternal age in second trimester 12/01/2022 9:39 AM EDT DIFFERENTIAL, AUTOMATED Lab Routine Multigravida of advanced maternal age in second trimester 12/01/2022 9:39 AM EDT ANEMIA REFLEX CHEMISTRY HOLD Lab Routine Multigravida of advanced maternal age in second trimester 12/01/2022 9:39 AM EDT SYPHILIS ANTIBODY SCREEN Lab Routine Multigravida of advanced maternal age in second trimester 12/01/2022 9:39 AM EDT Health Maintenance Due Date Last [...] of advanced maternal age in second trimester documented in this encounter
--- OUTSIDE RECORDS SUMMARY | 2023-02-28 09:52 | External Medical Summary ---
Author Name Unknown Address Unknown Organization K01:[facility] - [address] [place] [address] Laboratory Report Ordering Provider Test Date Status DAYNA WILEY 12/01/2022 09:39:32 Final Observation Date Value Abnormality Reference (Units ) Status WBC, Total 12/01/2022 09:39:32 10.37 4.00-10.8 0 (K/uL) Final RBC 12/01/2022 09:39:32 4.18 3.85-5.15 (M/uL) Final Hemoglobin 12/01/2022 09:39:32 13.1 12.0-15.3 (g/dL) Final Anemia reflex testing trigge rs on a HGB < 12.0 for Females and HGB < 13.0 for Males in accordance with the WHO Anemia Guidelines
Anemia reflex testing triggers on a HGB < 12.0 for Females and HGB < 13.0 for Males in accordance with the WHO Anemia Guidelines HCT 12/01/2022 09:39:32 40.6 36.0-45.2 (%) Final MCV 12/01/2022 09:39:32 97.1 81.5-97.5 (fL) Final MCH 12/01/2022 09:39:32 31.3 27.0-34.0 (pg) Final MCHC 12/01/2022 09:39:32 32.3 32.0-36.0 (g/dL) Final RDW 12/01/2022 09:39:32 13.4 11.5-15.5 (%) Final Platelets 12/01/2022 09:39:32 218 140-400 (K /uL) Final MPV 12/01/2022 09:39:32 11.4 6.6-11.1 ( fL) Final Nucleated erythrocytes/100 leukocytes [Ratio] in Blood by Automated count 12/01/2022 09:39:32 0 <=0 (/100 WBCs) Fi nal Performing Location [facility] - [address] [place] [address]
--- OUTSIDE RECORDS SUMMARY | 2023-02-28 09:52 | External Medical Summary ---
Author Name Unknown Address Unknown Organization : Laboratory Report Ordering Provider Test Date Status FAYE ARVIZU 10/13/2022 09:41:48 Final Observation Date Value Abnormality Reference (Units ) Status INTERPRETATION 10/13/2022 09:41:48 SEE BELOW Final Screen negative for open NTD RISK FOR ONTD 10/13/2022 09:41:48 1:2300 Final CALC'D GESTATIONAL AGE 0610/13/2022 09:41:48 20.9 Final AFP, SERUM 10/13/2022 09:41:48 65.0 (ng/mL) Final AFP MOM 10/13/2022 09:41:48 1.17 Final Reference Range:
NTD <2 .50
IDD <1.90
TWINS <4.00
TWINS IDD <3.50
TRIPLETS <4.50
The AFP test result indicates that this patient is
screen negative for open NTD. It should be noted
that normal test results can never guarantee the
of a normal baby and that 2-3% of newborns
have some type of physical or mental defect, many
of which are undetectable through any known
diagnostic technique.
This is a screening test, not a diagnostic test.
This risk assessment report is based in part on
demographic data provided by the ordering
physician. Please notify the laboratory promptly
if any data are incorrect. For assistance with
recalculations, please call your local [facility] laboratory. For assistance with
interpretation of these results, please contact
your Local [facility] genetic counselor or
call [phone] ([phone]).
Interpretive Cutoffs
Screen Positive for Open NTD:
> or = 2.50 adjusted MOM
> or = 1.90 adjusted MOM for insulin-dependent diabetics
> or = 4.00 adjusted MOM for twins
> or = 3.50 adjusted MOM for twins insulin-dependent diabetics
> or = 4.50 adjusted MOM for triplets
For additional information, please refer to
[email or web address]
(This link is being provided for
informational/educational purposes only.) DATE OF 10/13/2022 09:41:48 1985 Final COLLECTION DATE 10/13/2022 09:41:48 10/13/2022 Final MATERNAL WEIGHT 10/13/2022 09:41:48 194 (lbs ) Final EST'D DATE OF DELIVERY 10/13/2022 09:41:48 02/24/2023 Final LIBRA DETERMINED BY 10/13/2022 09:41:48 NG Final MOTHER'S ETHNIC ORIGIN 10/13/2022 09:41:48 WHITE Final NUMBER OF FETUSES 10/13/2022 09:41:48 1 Final INSULIN DEPEND DIABETIC 10/13/2022 09:41:48 NO Final REPEAT SPECIMEN 10/13/2022 09:41:48 NO Final HX OF NEURAL TUBE DEFECTS 10/13/2022 09:41:48 NO Final PREV DOWN SYND 10/13/2022 09:41:48 NO Final DONOR EGG 10/13/2022 09:41:48 NO Final DONOR AGE: EGG RETRIEVAL 10/13/2022 09:41:48 NOT GIVEN Final Test performed by [facility]
[address],
[place] [address]

Liquid Waste Treatment Plant Operator: Kristin Elias MD,PHD,PERFECTO
Test Reported by Mateo Sherman,
[facility],
[address], [place]
Gamaliel Cardenas M.D., Ph.D., Director of Laboratories
, [place]ETTE [id number] Performing Location
--- OUTSIDE RECORDS SUMMARY | 2023-02-28 09:52 | External Medical Summary | Summary of Care ---
Author Name Unknown Organization [facility] Address [address] [facility] [place] [address] Phone [phone] Care Team Providers Care Filing And Polishing Supervisor Name Role Phone Unavailable Primary Care Provider Unavailabl e Reason for Visit * Reason Onset Date Comments Medication Refill 12/29/2022 Encounter Details Date Type Department Care Team Description 12/29/2022 Refill Dermatology [facility] [place] [address] [facility] [place] [address] Danita Diaz MD Psoriasis* Allergies No known active allergiesdocumented as of this encounter (statuses as of 12/31/2022) Medications Medication Sig Dispensed Refills Start Date [...] as of this encounter (statuses as of 12/31/2022) Active Problems Problem Noted Date Supervision of [...] as of this encounter (statuses as of 12/31/2022) Resolved Problems Problem Noted Date Resolved Date [...] as of this encounter (statuses as of 12/31/2022) Immunizations Name Administration Dates Next Due Seasonal Influenza, PF, 6 mo ns & Above, IM , (Flulaval) 01/25/2022,02/02/2021,01/24/2020 TDAP (age 10 and older)(Boostrix) 12/01/2022,02/2019 [...] encounter Miscellaneous Notes * Telephone Encounter - Jonathan Chandler MD - 12/30/2022 12:41 PM EDT Refused Prescriptions: Disp Refills Betamethasone Dipropionate 0.05 % External*60 mL 0 Si times a day. To affected area. Refused By: JONATHAN CHANDLER Reason for Refusal: Contraindicated * Telephone Encounter - Cindy Mathis LPN - 12/30/2022 11:04 AM EDTPending Prescriptions: Disp Refills Betamethasone Dipropionate 0.05 % External*60 mL 0 Si times a day. To affected area. * Telephone Encounter - Jonathan Chandler MD - 12/30/2022 10:56 AM EDT Pending Prescriptions: Disp Refills Betamethasone Dipropionate 0.05 % External*60 mL 0 Si timesa day. To affected area. documented in this encounter Plan of Treatment Upcoming Encounters Date Type Specialty Care Team Description 01/13/2023 Office Visit Gynecology Obstetrics Maris James CRNP [address] [place] [address] 01/26/2023 Office Visit Gynecology Obstetrics Valeria Tena PA-C [address] [place] [address] 02/02/2023 Office Visit Gynecology Obstetrics Bobby Le MD [address] [place] [address] 02/09/2023 Office Visit Gynecology Obstetrics Sonja Powell MD [address] [place] [address] [phone] 02/16/2023 Office Visit Gynecology Obstetrics Valeria Tena PA-C [address] [place] [address] 02/24/2023 Office Visit Gynecology Obstetrics Maris James CRNP [address] [place] [id number] Health Maintenance Due Date Last Done Comments [...] as of this encounter Visit Diagnoses Diagnosis Psoriasis- Primary Other psoriasis documented in this encounter
--- OUTSIDE RECORDS SUMMARY | 2023-02-28 09:52 | External Medical Summary | Summary of Care ---
Author Name Unknown Organization [facility] [address] [place] [address] Phone [phone] Care Team Providers Care Apron Worker Name Role Phone Unavailable Primary Care Provider Unavailabl e Encounter Details Date Type Department Care Team Description 08/28/2022 Telephone Gynecology/Obstetrics [facility] [address] [place] [address] Janet Lynne CRNP [address] [place] [address] Allergies No known active allergiesdocumented as of this encounter (statuses as of 08/28/2022) Medications Medication Sig Dispensed Refills Start Date [...] twice daily 160 g 3 06/11/2021 Active Betamethasone Dipropionate 0.05 % External Lotion (Diprosone) Apply topically to affected area 2 times a day . 120 mL 11 06/11/2021 Active Calcipotriene 0.005 % External Ointment Apply topically to affected area 2 times a day . Apply to spots on chest 60 g 2 12/10/2021 Active documented as of this encounter (statuses as of 08/28/2022) Active Problems Problem Noted Date AMA (advanced maternal age) multigravida 35+ 07/18/2022 Need for rhogam due to Rh negative mothe r 05/07/2018 Estimated Date of Delivery Comme nts Yes 02/24/2023 Based on last me nstrual period of 05/20/2022 documented as of this encounter (statuses as of 08/28/2022) Resolved Problems Problem Noted Date Resolved Date [...] as of this encounter (statuses as of 08/28/2022) Immunizations Name Administration Dates Next Due Seasonal [...] encounter Miscellaneous Notes * Telephone Encounter - Skylar Cerda LPN - 08/28/2022 3:12 PM EDT Phone call to pt. Pt aware and verbalizes understanding Skylar Cerda LPN 08/28/2022 3:12 PM * Telephone Encounter - Skylar Cerda LPN - 08/28/2022 3:11 PM EDT ----- Message from YOGI Junior sent at 08/28/2022 7:20 AM EDT ----- Please notify patient of low risk qnatal screen documented in this encounter Plan of Treatment Upcoming Encounters Date Type Specialty Care Team Description 09/16/2022 Office Visit Gynecology Obstetrics Bobby Le MD [address] [place] [address] 10/10/2022 Office Visit Maternal Medicine Kristal Obrien, DO [address] [facility] [place] [address] 10/10/2022 Imaging Radiology Health Maintenance Due Date Last Done Comments [...] Additional history exists Hepatitis C Screening Completed 07/18/2022, 019 [facility] Aged Out No longer [...]
--- OUTSIDE RECORDS SUMMARY | 2023-02-28 09:52 | External Medical Summary | Summary of Care ---
Author Name Unknown Organization [facility] Address [address] [facility] [place] [address] Phone [phone] Care Team Providers Care Administrative Assistant Name Role Phone Unavailable Primary Care Provider Unavailabl e Reason for Visit * Reason Comments Return Visit Encounter Details Date Type Department Care Team Description 12/16/2022 [facility] [address] [place] [address] BackerJanet CRNP [address] [place] [address] Supervision of other normal , antepartum*; Multigravida of advanced maternal age in third trimester; Need for rhogam due to Rh negative mother Allergies No known active allergiesdocumented as of this encounter (statuses as of 12/16/2022) Medications Medication Sig Dispensed Refills Start Date [...] as of this encounter (statuses as of 12/16/2022) Active Problems Problem Noted Date Supervision of [...] as of this encounter (statuses as of 12/16/2022) Resolved Problems Problem Noted Date Resolved Date [...] as of this encounter (statuses as of 12/16/2022) Immunizations Name Administration Dates Next Due Seasonal [...] Sign Reading Time Taken Comments Blood Pressure 104/62 12/16/2022 11:37 AM EDT Pulse - - Temperature - - Respiratory Rate - - Oxygen Saturation - - Inhaled Oxygen Concentration - - Weight 89.8 kg (198 lb) 12/16/2022 11:37 AM EDT Height - - Body Mass Index 32.95 11/13/2022 10:38 AM EDT documented in this encounter Progress Notes * YOGI Cavazos - 12/16/2022 11:44 AM EDT 30 wks Endorses movement. No regular ctx/bleeding/leaking. Encouraged covid and flu vaccines, which she is planning to receive this fall. Normal 28 week labs. 2 week return YOGI Lei * Hayley Horton LPN - 12/16/2022 11:37 AM EDT 30w0d Denies vaginal bleeidng/rom + movement documented in this encounter Plan of Treatment Upcoming Encounters Date Type Specialty Care Team Description 01/13/2023 Office Visit Gynecology Obstetrics Maris James CRNP [address] [place] [address] 01/26/2023 Office Visit Gynecology Obstetrics Valeria Tena PA-C [address] [place] [address] 02/02/2023 Office Visit Gynecology Obstetrics Bobby Le MD [address] [place] [address] 02/09/2023 Office Visit Gynecology Obstetrics Sonja Powell MD [address] [facility] [place] [address] 02/16/2023 Office Visit Gynecology Obstetrics Valeria Tena PA-C [address] [place] [address] 02/24/2023 Office Visit Gynecology Obstetrics Maris James CRNP [address] [place] [address] Health Maintenance Due Date Last Done Comments [...]
--- OUTSIDE RECORDS SUMMARY | 2023-02-28 09:52 | External Medical Summary ---
Author Name Unknown Address Unknown Organization K01:[facility] [place] [address] [place] [address] Laboratory Report Ordering Provider Test Date Status DAYNA WILEY 12/01/2022 09:39:32 Final Observation Date Value Abnormality Reference (Units ) Status Treponema pallidum Ab [Presence] in Serum by Immunoassay 12/01/2022 09:39:32 Nonreactive Nonreactive Final No serologic evidence of syp hilis. No additional testing clinicially indicated at this time. Consider repeat testing in 2-4 weeks if acute or primary syphilis is suspected. Performing Location [facility] [place] [address] [place] [address]
--- OUTSIDE RECORDS SUMMARY | 2023-02-28 09:52 | External Medical Summary | Summary of Care ---
Author Name Unknown Organization [facility] Address [address] [facility] [place] [address] Phone [phone] Care Team Providers Care Ell Tutor Name Role Phone Unavailable Primary Care Provider Unavailabl e Reason for Visit * Reason Comments Return Visit Encounter Details Date Type Department Care Team Description 11/13/2022 Office Visit Gynecology/Obstetrics Amosnito Basurto [address] [place] [address] Maris James CRNP [address] [place] [address] Multigravida of advanced maternal age in second trimester*; Need for rhogam due to Rh negative mother Allergies No known active allergiesdocumented as of this encounter (statuses as of 11/17/2022) Medications Medication Sig Dispensed Refills Start Date [...] as of this encounter (statuses as of 11/17/2022) Active Problems Problem Noted Date AMA (advanced maternal age) multigravida 35+ 07/18/2022 Last Assessment & Plan: Low risk NIPT appreciated. Need for rhogam due to Rh negative mothe r 05/07/2018 Estimated Date of Delivery Comme nts Yes 02/24/2023 Based on last me nstrual period of 05/20/2022 documented as of this encounter (statuses as of 11/17/2022) Resolved Problems Problem Noted Date Resolved Date [...] as of this encounter (statuses as of 11/17/2022) Immunizations Name Administration Dates Next Due Seasonal [...] (195 lb) 11/13/2022 10:38 AM EDT Height 165.1 cm (5' 5") 11/13/2022 10:38 AM EDT Body Mass Index 32.45 11/13/2022 10:38 AM EDT documented in this encounter Progress Notes * YOGI Klein - 11/13/2022 10:46 AM EDT 25w2d Complaints: none Feeling well overall. Great FM. No contractions, bleeding, or LOF. Glucola, Rhogam, TDAP next visit. YOGI Klein documented in this encounter Nursing Notes * Jenise Sims LPN - 11/13/2022 10:37 AM EDT 25w2d Denies any issues documented in this encounter Plan of Treatment Upcoming Encounters Date Type Specialty Care Team Description 12/01/2022 Laboratory Laboratory Hardeep Basurto [address] [facility] [place] [address] 12/01/2022 Office Visit Gynecology Obstetrics Backer, YOGI Yates [address] [facility] [place] [address] Scheduled Orders Name Type Priority Associated Diagnoses [...]
--- OUTSIDE RECORDS SUMMARY | 2023-02-28 09:52 | External Medical Summary | Summary of Care ---
Author Name Unknown Organization [facility] Address [address] [facility] [place] [address] Phone [phone] Care Team Providers Care Computer Game Tester Name Role Phone Unavailable Primary Care Provider Unavailabl e Reason for Visit * Reason Comments Return Visit Encounter Details Date Type Department Care Team Description 09/16/2022 [facility] [address] [place] [address] Bobby Le MD [address] [place] [address] Need for rhogam due to Rh negative mother*; Multigravida of advanced maternal age in second trimester Allergies No known active allergiesdocumented as of this encounter (statuses as of 09/16/2022) Medications Medication Sig Dispensed Refills Start Date [...] as of this encounter (statuses as of 09/16/2022) Active Problems Problem Noted Date AMA (advanced maternal age) multigravida 35+ 07/18/2022 Need for rhogam due to Rh negative kamryn r 05/07/2018 Estimated Date of Delivery Comme nts Yes 02/24/2023 Based on last me nstrual period of 05/20/2022 documented as of this encounter (statuses as of 09/16/2022) Resolved Problems Problem Noted Date Resolved Date [...] as of this encounter (statuses as of 09/16/2022) Immunizations Name Administration Dates Next Due Seasonal [...] Sign Reading Time Taken Comments Blood Pressure 116/70 09/16/2022 2:59 PM EDT Pulse - - Temperature - - Respiratory Rate - - Oxygen Saturation - - Inhaled Oxygen Concentration - - Weight 87 kg (191 lb 12.8 oz) 09/16/2022 2:59 PM EDT Height 160 cm (5' 3") 09/16/2022 2:59 PM EDT Body Mass Index 33.98 09/16/2022 2:59 PM EDT documented in this encounter Progress Notes * Bobby Le MD - 09/16/2022 3:15 PM EDT Pt doing well No complaints AMA prateek for MFM appt RTc 4 weeks documented in this encounter Nursing Notes * MARAL Lu - 09/16/2022 3:04 PM EDT 17w0d Pt denies LOF/bleeding/contractions, no FM yet. Would like to make sure extra vitamin C supplement is safe. Anatomy scheduled with mfm documented in this encounter Plan of Treatment Upcoming Encounters Date Type Specialty Care Team Description 10/10/2022 Office Visit Maternal Medicine Kristal Obrien, DO [address] [place] [address] 10/10/2022 Imaging Radiology 10/13/2022 Office Visit Gynecology Obstetrics Valeria Tena PA-C [address] [place] [address] Health Maintenance Due Date Last Done Comments [...] as of this encounter Visit Diagnoses Diagnosis Need for rhogam due to Rh negative mother- Primary Need for prophylactic immunotherapy Multigravida of advanced maternal age in second trimester documented in this encounter
--- OUTSIDE RECORDS SUMMARY | 2023-02-28 09:52 | External Medical Summary | Summary of Care ---
Author Name Unknown Organization [facility] Address [address] [facility] [place] [address] Phone [phone] Care Team Providers Care Product Safety Test Engineer Name Role Phone Unavailable Primary Care Provider Unavailabl e Reason for Visit * Reason Comments Outpatient Testing Encounter Details Date Type Department Care Team Description 10/13/2022 Laboratory Laboratory, [facility] [address] [facility] [address] [facility] [address] [place] [address] Arrived Allergies No known active allergiesdocumented as of [...] YOGI Williamson [address] [place] [address] Health Maintenance Due Date Last Done Comments [...]
--- OUTSIDE RECORDS SUMMARY | 2023-02-28 09:52 | External Medical Summary | Summary of Care ---
Author Name Unknown Organization [facility] Address [address] [place] [address] Phone [phone] Care Team Providers Care Tester Waste Disposal Leakage Name Role Phone Unavailable Primary Care Provider Unavailabl e Reason for Visit * Evaluate & Treat - Unlimited Visits (Within 10 days (routine)) - Pending Review Specialty Diagnoses / Procedures Referred By Lilibeth byers Referred To Contact Obstetrics/Gynecology / Maternal Medicine Diagnoses Multigravida of advanced maternal age in second trimester Meg Nuno CNM [address] [place] [address] Referral ID Status Reason Start Date Expiration Date Visits Requested Visits Authorized [id number] Pending Review Specialty Services Required 08/18/[phone] Encounter Details Date Type Department Care Team Description 10/10/2022 Office Visit Spool Carrier OB Maternal Medicine [facility] Laci Sanchez [address] [place] [address] [address] [place], [place] [phone] Camille, Kristaljuanjose Gonzalez, DO [address] [place], [place] [id number] Multigravida of advanced maternal age in second [...] Valeria Tena PA-C [address] [place] [address] Health Maintenance Due Date Last Done Comments [...]
--- OUTSIDE RECORDS SUMMARY | 2023-02-28 09:52 | External Medical Summary | Summary of Care ---
Author Name Unknown Organization [facility] Address [address] [facility] [place] [address] Phone [phone] Care Team Providers Care Factorer Name Role Phone Unavailable Primary Care Provider Unavailabl e Reason for Visit * Reason Comments Return Visit Encounter Details Date Type Department Care Team Description 12/30/2022 Office Visit Gynecology/Obstetrics Bear Basurto [address] [place] [address] Maris James CRNP [address] [place] [address] Multigravida of advanced maternal age in third trimester*; Need for rhogam due to Rh negative mother; Supervision of other normal , antepartum Allergies No known active allergiesdocumented as of this encounter (statuses as of 12/30/2022) Medications Medication Sig Dispensed Refills Start Date [...] as of this encounter (statuses as of 12/30/2022) Active Problems Problem Noted Date Supervision of [...] as of this encounter (statuses as of 12/30/2022) Resolved Problems Problem Noted Date Resolved Date [...] as of this encounter (statuses as of 12/30/2022) Immunizations Name Administration Dates Next Due Seasonal [...] Sign Reading Time Taken Comments Blood Pressure 110/70 12/30/2022 1:33 PM EDT Pulse - - Temperature - - Respiratory Rate - - Oxygen Saturation - - Inhaled Oxygen Concentration - - Weight 91.8 kg (202 lb 6.4 oz) 12/30/2022 1:33 P M EDT Height 165.1 cm (5' 5") 12/30/2022 1:33 PM EDT Body Mass Index 33.68 12/30/2022 1:33 PM EDT documented in this encounter Progress Notes * YOGI Klein - 12/30/2022 1:38 PM EDT 32w0d Complaints: none. Has a few questions we answered. Feeling well overall. Going to the beach next week. Good FM. No contractions, bleeding, or LOF. Flu vaccine at next visit. YOGI Klein documented in this encounter Nursing Notes * Debra Adams LPN - 12/30/2022 1:38 PM EDT 32w0d Pt wanted to discuss bethmethasone not being safe during , uses it on scalp on average about 3x/week. documented in this encounter Plan of Treatment Upcoming Encounters Date Type Specialty Care Team Description 01/13/2023 Office Visit Gynecology Obstetrics Maris James CRNP [address] [place] [address] 01/26/2023 Office Visit Gynecology Obstetrics Valeria Tena PA-C [address] [place] [address] 02/02/2023 Office Visit Gynecology Obstetrics Bobby Le MD [address] [place] [address] 02/09/2023 Office Visit Gynecology Obstetrics Sonja Powell MD [address] [place] [address] [place] [address] 02/16/2023 Office Visit Gynecology Obstetrics Valeria Tena PA-C [address] [place] [address] 02/24/2023 Office Visit Gynecology Obstetrics Maris James CRNP [address] [place] [address] Health Maintenance Due Date Last Done Comments [...]
== END 2023-02-25 15:29 | disposition home or self-care (01) | DRG 807 ==
LOC: 4S1 14:10 → 4E2 02-24 05:27